=== PATIENT | male | born 1975 | race Caucasian/White ===

== ENCOUNTER 2022-10-11 00:13 | Inpatient (IN) ==
[2022-10-11] MEDS ORDERED: SODIUM CHLORIDE 0.9% 1000ML 1,000 ML IV ONE (00:24)
[2022-10-11] MEDS ORDERED: METOPROLOL TARTRATE 1 MG/ML VIAL IV STA ×2 (00:24→00:55)
--- NOTE | 2022-10-11 00:32 | Emergency Department Note ---
History of Present Illness General Chief complaint: Arrhythmia/Palpitations Stated complaint: AFIB/SHORT OF BREATH Time Seen by Provider: 10/11/22 00:17 History of Present Illness 47-year-old male presents from the correction reportedly had an onset of increased heart rate and some shortness of breath that started earlier this evening. Patient is on Tikosyn and 12.5 of metoprolol he did take an extra dose of 12.5 of metoprolol prior to arrival. Patient denies nausea vomiting diarrhea denies current chest pain. Patient states that he has longstanding history of atrial fibrillation. There are no other mitigating or alleviating factors Home Medications Medication Instructions Recorded Confirmed Type celecoxib 100 mg capsule (Celebrex) 100 mg PO BID 06/11/22 10/11/22 History dofetilide 500 mcg capsule 500 mcg PO BID 06/11/22 10/11/22 History (Tikosyn) gabapentin 800 mg tablet 800 mg PO TID 06/11/22 10/11/22 History metoprolol tartrate 25 mg tablet 12.5 mg PO BID 06/11/22 10/11/22 History trazodone 100 mg tablet 100 mg PO HS 06/11/22 10/11/22 History calcium polycarbophil 625 mg 625 mg PO BID 10/11/22 10/11/22 History tablet (Fiber Laxative (calcium polycarbophil)) cholecalciferol (vitamin D3) 25 50 mcg PO DAILY 10/11/22 10/11/22 History mcg (1,000 unit) tablet (Vitamin D3) duloxetine 30 mg capsule,delayed 30 mg PO DAILY 10/11/22 10/11/22 History release guanfacine 4 mg tablet,extended 4 mg PO HS 10/11/22 10/11/22 History release 24 hr prazosin 2 mg capsule 2 mg PO HS 10/11/22 10/11/22 History Allergies Allergy/AdvReac Type Severity Reaction Status Date / Time NKDA Allergy nkda Uncoded 10/11/22 02:19 Past Med/Surg History Medical History A-fib Anxiety GERD (gastroesophageal reflux disease) H/O paroxysmal supraventricular tachycardia HTN (hypertension) Lumbar pain with radiation down right leg Lumbar radiculopathy Vitamin D deficiency Social History Smoking Status: Never smoker Hx Alcohol Use: Yes Hx Substance Use: Yes Preferred Language: Kinyarwanda Hearing Ability: Normal 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 Beliefs That Will Affect Care: None Current Living Situation: Other Current Living Situation Comment: [place] Feels Safe at Home: Yes Review of Systems A total of 10 systems reviewed and were otherwise negative Respiratory: + cough and + dyspnea Cardiovascular: no chest pain Physical Exam Vital Signs Vital Signs - 24 hr 10/11/22 00:31 10/11/22 00:37 10/11/22 00:37 Temperature 36.8 C Temperature Source Oral Pulse Rate 128 H 117 H Pulse Rate from SpO2 Sensor Pulse Rhythm Irregular Irregular Respiratory Rate 18 18 Respiratory Effort / Characteristics Non-Labored Spontaneous Respiratory Depth Normal Respiratory Pattern Regular Blood Pressure 141/97 H Blood Pressure Mean 111 Pulse Oximetry 95 94 95 Oxygen Delivery Method Room Air Room Air Room Air Oxygen Flow Rate 0 Sepsis Recent Fever Within 48 Hours No Sepsis New/Unexplained Change in Mental Status No Sepsis Action Taken by Nursing No Action Required 10/11/22 00:42 10/11/22 00:24 10/11/22 00:30 Temperature Temperature Source Pulse Rate 116 H 122 H 127 H Pulse Rate from SpO2 Sensor 121 H Pulse Rhythm Respiratory Rate 12 20 Respiratory Effort / Characteristics Respiratory Depth Respiratory Pattern Blood Pressure 141/97 H 141/97 H Blood Pressure Mean 111 Pulse Oximetry 96 Oxygen Delivery Method Oxygen Flow Rate Sepsis Recent Fever Within 48 Hours Sepsis New/Unexplained Change in Mental Status Sepsis Action Taken by Nursing 10/11/22 00:40 10/11/22 00:45 10/11/22 00:59 Temperature Temperature Source Pulse Rate 122 H 121 H 112 H Pulse Rate from SpO2 Sensor 128 H 117 H Pulse Rhythm Respiratory Rate 20 16 Respiratory Effort / Characteristics Respiratory Depth Respiratory Pattern Blood Pressure 124/85 Blood Pressure Mean Pulse Oximetry 95 97 Oxygen Delivery Method Oxygen Flow Rate Sepsis Recent Fever Within 48 Hours Sepsis New/Unexplained Change in Mental Status Sepsis Action Taken by Nursing 10/11/22 00:50 10/11/22 00:55 10/11/22 01:00 Temperature Temperature Source Pulse Rate 112 H 110 H 120 H Pulse Rate from SpO2 Sensor 105 H 99 H 99 H Pulse Rhythm Respiratory Rate 14 16 19 Respiratory Effort / Characteristics Respiratory Depth Respiratory Pattern Blood Pressure 124/85 127/85 Blood Pressure Mean 98 99 Pulse Oximetry 95 95 95 Oxygen Delivery Method Oxygen Flow Rate Sepsis Recent Fever Within 48 Hours Sepsis New/Unexplained Change in Mental Status Sepsis Action Taken by Nursing 10/11/22 01:05 10/11/22 01:10 10/11/22 01:15 Temperature Temperature Source Pulse Rate 100 H 119 H 112 H Pulse Rate from SpO2 Sensor 100 H 109 H Pulse Rhythm Respiratory Rate 14 14 12 Respiratory Effort / Characteristics Respiratory Depth Respiratory Pattern Blood Pressure 118/82 127/82 105/82 Blood Pressure Mean 94 97 89 Pulse Oximetry 96 94 95 Oxygen Delivery Method Oxygen Flow Rate Sepsis Recent Fever Within 48 Hours Sepsis New/Unexplained Change in Mental Status Sepsis Action Taken by Nursing 10/11/22 01:20 10/11/22 01:30 10/11/22 01:40 Temperature Temperature Source Pulse Rate 124 H 102 H 105 H Pulse Rate from SpO2 Sensor 113 H 99 H 101 H Pulse Rhythm Respiratory Rate 14 12 13 Respiratory Effort / Characteristics Respiratory Depth Respiratory Pattern Blood Pressure 125/73 113/83 106/79 Blood Pressure Mean 90 93 88 Pulse Oximetry 95 94 94 Oxygen Delivery Method Oxygen Flow Rate Sepsis Recent Fever Within 48 Hours Sepsis New/Unexplained Change in Mental Status Sepsis Action Taken by Nursing 10/11/22 01:50 10/11/22 02:00 10/11/22 02:10 Temperature Temperature Source Pulse Rate 108 H 115 H 106 H Pulse Rate from SpO2 Sensor 100 H 105 H Pulse Rhythm Respiratory Rate 11 L 12 14 Respiratory Effort / Characteristics Respiratory Depth Respiratory Pattern Blood Pressure 120/80 102/81 140/97 Blood Pressure Mean 93 88 111 Pulse Oximetry 94 95 96 Oxygen Delivery Method Oxygen Flow Rate Sepsis Recent Fever Within 48 Hours Sepsis New/Unexplained Change in Mental Status Sepsis Action Taken by Nursing 10/11/22 02:20 10/11/22 02:30 10/11/22 02:40 Temperature Temperature Source Pulse Rate 102 H 99 H 99 H Pulse Rate from SpO2 Sensor 99 H 98 H 93 H Pulse Rhythm Respiratory Rate 11 L 11 L 11 L Respiratory Effort / Characteristics Respiratory Depth Respiratory Pattern Blood Pressure 117/83 108/86 108/84 Blood Pressure Mean 94 93 92 Pulse Oximetry 95 95 95 Oxygen Delivery Method Oxygen Flow Rate Sepsis Recent Fever Within 48 Hours Sepsis New/Unexplained Change in Mental Status Sepsis Action Taken by Nursing GENERAL: Patient is awake alert in no acute distress patient is resting comfortably and showing no signs of anxiety EYES: The conjunctivae are clear. The pupils are round and reactive. EARS, NOSE, MOUTH AND THROAT: The nose is without any evidence of any deformity. Mucous membranes are moist. Tongue is midline. NECK: The neck is nontender and supple. RESPIRATORY: Normal respiratory effort is noted there is no evidence of wheezing rhonchi or rales CARDIOVASCULAR: Irregularly irregular rhythm noted there no murmurs rubs or gallops normal S1 normal S2. GASTROINTESTINAL: The abdomen is soft. Abdomen is nontender. BACK: Full range of motion MUSCULOSKELETAL/EXTREMITIES: There is no evidence of gross deformity full range of motion is noted in the hips and shoulders. SKIN: There is no obvious evidence of any rash. There are no petechiae, pallor or cyanosis noted. NEUROLOGIC: Patient is awake alert and oriented x3 strength is symmetric Course Reevaluation(s) Reevaluation #1: Patient was given IV fluids, patient was started on Lopressor x2, patient has a heart rate that is 108. Patient reportedly has had multiple ablations and cardioversions and is also not on any anticoagulation. Time: : Consultations Consultation #1: Case was discussed with the [facility]ist for admission Time: : Administered Medications Discontinued Medications Sodium Chloride (Nss 1000ml) 1,000 mls @ 999 mls/hr IV .Q1H1M ONE Stop: 10/11/22 01:24 Last Infusion: 10/11/22 01:48 Dose: 0 mls/hr Documented By: Admin: 10/11/22 00:43 Dose: 999 mls/hr Documented By: LYNDON Metoprolol Tartrate (Metoprolol Tartrate 1 Mg/Ml Vial) 5 mg IV NOW STA Stop: 10/11/22 00:25 Last Admin: 10/11/22 00:42 Dose: 5 mg Documented By: LYNDON Metoprolol Tartrate (Metoprolol Tartrate 1 Mg/Ml Vial) 5 mg IV NOW STA Stop: 10/11/22 00:56 Last Admin: 10/11/22 00:59 Dose: 5 mg Documented By: LYNDON Critical Care Time Critical Care Time: Yes Total Critical Care Time: 35 I have personally spent greater than 35 minutes of critical care time in the direct management of this patient. This includes bedside care, interpretation of diagnostic studies, and testing, discussion with consultants, patient, and family members, and other required patient management activities. These minutes are in excess of all separately billable procedures. Medical Decision Making Medical Records Attestation: I reviewed the patient's medical records. Home Medications Current Medication List: was personally reviewed by me Laboratory Data Attestation: I reviewed the patient's lab results. Labs interpreted by me are unremarkable 10/11/22 00:39 10/11/22 00:39 Lab Results 10/11/22 10/11/22 10/11/22 Range/Units 00:39 00:39 00:39 WBC 5.55 (4.8-10.8) K/ul RBC 4.44 L (4.70-6.10) M/uL Hgb 14.4 (14.0-18.0) g/dl Hct 40.5 L (42.0-52.0) % MCV 91.2 (80.0-100.0) fL MCH 32.4 (25.0-34.0) pg MCHC 35.6 (32.0-36.0) g/dL RDW Std Deviation 40.6 (36.4-46.3) fL RDW Coeff of Angel Luis 12.3 (11.5-14.5) % Plt Count 139 (130-400) K/uL MPV 9.9 (9.4-12.4) fL Immature Gran % (Auto) 0.4 % Neut % (Auto) 65.9 % Lymph % (Auto) 22.9 % Barron % (Auto) 9.7 % Eos % (Auto) 0.7 % Baso % (Auto) 0.4 % Neut # (Auto) 3.66 (1.40-6.50) K/uL Lymph # (Auto) 1.27 (1.2-3.4) K/uL Barron # (Auto) 0.54 (0.11-0.59) K/uL Eos # (Auto) 0.04 (0-0.50) K/uL Baso # (Auto) 0.02 (0-0.2) K/uL Immature Gran # (Auto) 0.02 (0.01-0.20) K/uL PT 11.4 (9.0-12.0) Seconds INR 1.0 (0.9-1.1) Sodium 140 (136-145) mmol/L Potassium 3.6 (3.5-5.1) mmol/L Chloride 104 (98-107) mmol/L Carbon Dioxide 29 (21-32) mmol/L Anion Gap 7 (3-11) BUN 25 H (6-23) mg/dl Creatinine 0.89 (0.6-1.4) mg/dl Est Cr Clr Drug Dosing 139.8 ml/min Est GFR ( Amer) 117.2 ml/min Est GFR (Non-Af Amer) 101.1 ml/min BUN/Creatinine Ratio 28.1 H (10-20) Glucose 105 H (70-99(Fasting)) mg/dl Calcium 8.9 (8.6-10.3) mg/dl Magnesium 2.0 (1.7-2.4) mg/dl Total Bilirubin 0.7 (0.2-1.0) mg/dl AST 19 (13-39) U/L ALT 13 (7-52) U/L Alkaline Phosphatase 52 (34-104) U/L Troponin I High Sens 7.5 (0-20) pg/ml Total Protein 6.3 (6.0-8.3) gm/dl Albumin 4.1 (3.4-5.0) gm/dl Globulin 2.2 L (2.5-4.0) gm/dl Albumin/Globulin Ratio 1.9 (0.9-2) SARS-CoV-2, RNA, NAAT (NEGATIVE) 10/11/22 Range/Units 00:48 WBC (4.8-10.8) K/ul RBC (4.70-6.10) M/uL Hgb (14.0-18.0) g/dl Hct (42.0-52.0) % MCV (80.0-100.0) fL MCH (25.0-34.0) pg MCHC (32.0-36.0) g/dL RDW Std Deviation (36.4-46.3) fL RDW Coeff of Angel Luis (11.5-14.5) % Plt Count (130-400) K/uL MPV (9.4-12.4) fL Immature Gran % (Auto) % Neut % (Auto) % Lymph % (Auto) % Barron % (Auto) % Eos % (Auto) % Baso % (Auto) % Neut # (Auto) (1.40-6.50) K/uL Lymph # (Auto) (1.2-3.4) K/uL Barron # (Auto) (0.11-0.59) K/uL Eos # (Auto) (0-0.50) K/uL Baso # (Auto) (0-0.2) K/uL Immature Gran # (Auto) (0.01-0.20) K/uL PT (9.0-12.0) Seconds INR (0.9-1.1) Sodium (136-145) mmol/L Potassium (3.5-5.1) mmol/L Chloride (98-107) mmol/L Carbon Dioxide (21-32) mmol/L Anion Gap (3-11) BUN (6-23) mg/dl Creatinine (0.6-1.4) mg/dl Est Cr Clr Drug Dosing ml/min Est GFR ( Amer) ml/min Est GFR (Non-Af Amer) ml/min BUN/Creatinine Ratio (10-20) Glucose (70-99(Fasting)) mg/dl Calcium (8.6-10.3) mg/dl Magnesium (1.7-2.4) mg/dl Total Bilirubin (0.2-1.0) mg/dl AST (13-39) U/L ALT (7-52) U/L Alkaline Phosphatase (34-104) U/L Troponin I High Sens (0-20) pg/ml Total Protein (6.0-8.3) gm/dl Albumin (3.4-5.0) gm/dl Globulin (2.5-4.0) gm/dl Albumin/Globulin Ratio (0.9-2) SARS-CoV-2, RNA, NAAT NEGATIVE (NEGATIVE) Imaging Data Attestation: I personally reviewed and interpreted this imaging study as follows: My Impression: Chest x-ray interpreted by me negative for infiltrate normal mediastinum no pneumothorax no effusions ECG Data Attestation: I personally reviewed and interpreted this ECG as follows: Additional Comments: EKG interpreted by me rapid atrial fibrillation rate of 122 poor R wave progression the precordium no obvious ST segment elevation or depression normal axis Telemetry was ordered by me, interpreted as rapid atrial fibrillation rate of 120 MDM Narrative Medical decision making differential diagnosis includes rapid atrial fibrillation, electrolyte abnormality, metabolic derangement, acute coronary syndrome Plan is to check labs, EKG, chest x-ray, give IV Lopressor External medical records were reviewed by me Patient remained in stable condition however continued to have rapid atrial fibrillation despite Lopressor iv Case was discussed with the [facility] hospitalist for admission Impression & Plan Atrial fibrillation with RVR Discharge Plan Visit Data Chief Complaint: Arrhythmia/Palpitations Stated Complaint: AFIB/SHORT OF BREATH ED Provider: Hi Moreno Discharge Problem: Atrial fibrillation with RVR Patient Disposition: Admitted As Inpatient Forms Stand Alone Forms: [facility] Prescriptions Prescriptions: No Action gabapentin 800 mg tablet 800 mg PO TID trazodone 100 mg tablet 100 mg PO HS metoprolol tartrate 25 mg tablet 12.5 mg PO BID celecoxib [Celebrex] 100 mg capsule 100 mg PO BID dofetilide [Tikosyn] 500 mcg capsule 500 mcg PO BID calcium polycarbophil [Fiber Laxative (ca polycarbo)] 625 mg Tablet 625 mg PO BID prazosin 2 mg Capsule 2 mg PO HS duloxetine 30 mg Capsule,Delayed Release(Dr/Ec) 30 mg PO DAILY cholecalciferol (vitamin D3) [Vitamin D3] 25 mcg (1,000 unit) Tablet 50 mcg PO DAILY guanfacine 4 mg Tablet Extended Release 24 Hr 4 mg PO HS Referrals Referrals: Daron Bonilla [Non-Staff] -
[2022-10-11 01:04] LABS: Basophils # (auto) 0.02 K/uL (0-0.2); Basophils % (auto) 0.4 %; Eosinophils # (auto) 0.04 K/uL (0-0.50); Eosinophils % (auto) 0.7 %; Hematocrit (blood only) 40.5 % (42.0-52.0); Hemoglobin 14.4 g/dl (14.0-18.0); Immature Granulocytes # (auto) 0.02 K/uL (0.01-0.20); Immature Granulocytes % (auto) 0.4 %; Lymphocytes # (auto) 1.27 K/uL (1.2-3.4); Lymphocytes % (auto) 22.9 %; Mean Corpuscular Hemoglobin 32.4 pg (25.0-34.0); Mean Corpuscular Hgb Conc 35.6 g/dL (32.0-36.0); Mean Corpuscular Volume 91.2 fL (80.0-100.0); Mean Platelet Volume 9.9 fL (9.4-12.4); Monocytes # (auto) 0.54 K/uL (0.11-0.59); Monocytes % (auto) 9.7 %; Neutrophils # (auto) 3.66 K/uL (1.40-6.50); Neutrophils % (auto) 65.9 %; Platelet Count 139 K/uL (130-400); RDW Coefficient of Variation 12.3 % (11.5-14.5); RDW Standard Deviation 40.6 fL (36.4-46.3); Red Blood Count 4.44 M/uL (4.70-6.10); White Blood Count 5.55 K/ul (4.8-10.8)
[2022-10-11 01:07] LABS: Albumin Globulin Ratio 1.9 (0.9-2); Albumin Level 4.1 gm/dl (3.4-5.0); BUN Creatinine Ratio 28.1 (10-20); Bilirubin,Total 0.7 mg/dl (0.2-1.0); Calcium 8.9 mg/dl (8.6-10.3); Creatinine Clr Calc Pharmacy 139.8 ml/min; Est GFR (African American) 117.2 ml/min; Est GFR (Non-African American) 101.1 ml/min; Globulin 2.2 gm/dl (2.5-4.0); Potassium 3.6 mmol/L (3.5-5.1); Total Protein 6.3 gm/dl (6.0-8.3)
[2022-10-11 01:14] LABS: Troponin I High Sensitivity 7.5 pg/ml (0-20)
[2022-10-11 01:16] LABS: Prothrombin Time 11.4 Seconds (9.0-12.0)
[2022-10-11] MEDS ORDERED: SODIUM CHLORIDE 0.9% 1000ML 1,000 ML IV SCH (03:43)
[2022-10-11] MEDS ORDERED: METOPROLOL TARTRATE 1 MG/ML VIAL IV PRN (03:43)
[2022-10-11] MEDS ORDERED: ACETAMINOPHEN 325 MG TAB PO PRN (03:43)
[2022-10-11] MEDS ORDERED: NITROGLYCERIN SL 0.4 MG/TAB TAB SL PRN (03:43)
[2022-10-11] MEDS ORDERED: POLYETHYLENE (MIRALAX) 17 GM PACK PO PRN (03:43)
--- NOTE | 2022-10-11 04:32 | History and Physical Report ---
DATE OF ADMISSION: 10/11/2022. CHIEF COMPLAINT: Rapid AFib. HISTORY OF PRESENT ILLNESS: A 47-year-old male with past medical history significant for AFib, diagnosed in 2008 as per patient and says he had 3 ablations and 12 cardioversions in the past, last time he had rapid AFib, was 4 years ago. He is on Tikosyn for the last 4 years ago as per patient, history of chronic lumbar radiculopathy, also seems history of anxiety and depression, presents with rapid AFib. The patient says he was having lots of PVCs in the morning and later in the evening he developed heart palpitations, feeling some short of breath and some dizziness and was brought him to the hospital. In ER was in rapid AFib in the ER . Received IV Lopressor, heart rate is in low 100s now, resting comfortably, hemodynamically stable. Denies any headache. No blurred visions, no earache, no runny nose, no sore throat, no cough, no recent fevers. Appetite is okay. Eating and drinking okay. No nausea. No abdominal pain. Normal bowel and bladder movements.Denies Chest pains. Denies any blood in stools or black stools. Denies any hematuria. ALLERGIES: No known drug allergies. PAST MEDICAL HISTORY: As mentioned above. PAST SURGICAL HISTORY: Current cardiac ablations and also appendectomy. MEDICATIONS: The patient is on fiber laxative 625 mg p.o. b.i.d., celecoxib 100 mg p.o. b.i.d., vitamin D 50 mcg p.o. daily, Tikosyn 500 mcg p.o. b.i.d., duloxetine 30 mg p.o. daily, gabapentin 100 mg p.o. t.i.d., guanfacine 4 mg p.o. at bedtime, metoprolol tartrate 12.5 mg p.o. b.i.d., prazosin 2 mg p.o. at bedtime, trazodone 100 mg p.o. at bedtime. FAMILY HISTORY: Denies any family history. SOCIAL HISTORY: Denies any smoking. Rarely drinks alcohol. Denies any drug use. Currently coming from snf. REVIEW OF SYSTEMS: As per HPI. Rest of the review of systems is negative. PHYSICAL EXAMINATION: GENERAL: The patient is of moderate build, not in acute distress. VITAL SIGNS: Temperature 36.8, pulse 105, respiratory rate 13, blood pressure 106/79, oxygen 94% on room air. HEENT: Pupils equal, round and reactive to light. Oral mucosa moist. NECK: No JVD. No neck masses. CARDIOVASCULAR: S1 and S2 heard. Tachycardia. Irregular rhythm. No murmurs. RESPIRATORY SYSTEM: Normal AP diameter. No accessory muscle use. No wheezing or crackles. ABDOMEN: Soft, bowel sounds present, nontender, no distention. CENTRAL NERVOUS SYSTEM: Alert and oriented. Speech is clear. No facial droop. Obeys simple commands. Moves extremities. EXTREMITIES: No edema, no erythema. LABORATORY DATA: WBC 5.5, hemoglobin 14.4, hematocrit 40.5, platelets 139. PT 11.4, INR 1. Sodium 140, potassium 3.6, chloride 104, bicarbonate 29, BUN 25, creatinine 0.89, serum glucose 105, calcium 8.9, magnesium 2, total bilirubin 0.7, AST 19, ALT 13, alkaline phosphatase 52. Troponin I high sensitivity 7.5. SARS-CoV-2 rapid test negative. IMAGING DATA: Chest x-ray, no acute findings. EKG, rapid AFib with a rate of 122, no acute ST changes seen. ASSESSMENT AND PLAN: This is a 47-year-old male, who presents with rapid atrial fibrillation. 1. Rapid atrial fibrillation. Improved with IV Lopressor. Continue home metoprolol tartrate and Tikosyn. Iv lopressor prn. The patient is not on any anticoagulation. We will follow and monitor in tele floor. Serial enzymes, echocardiogram. We will keep n.p.o.Consult Cardiology. Anticoagulation as per Cardiology. 2. Chronic back pain. Continue his home medications. 3.? anxiety and depression. Continue his home medications. 4. Deep venous thrombosis prophylaxis. Lovenox. DISPOSITION: Closely monitor in the tele floor. Level 1 full code. Expect to discharge back to snf when stable. Job ID: [id number] [facility]
[2022-10-11 06:29] LABS: Basophils # (auto) 0.02 K/uL (0-0.2); Basophils % (auto) 0.4 %; Eosinophils # (auto) 0.06 K/uL (0-0.50); Eosinophils % (auto) 1.1 %; Hemoglobin 13.5 g/dl (14.0-18.0); Immature Granulocytes # (auto) 0.01 K/uL (0.01-0.20); Immature Granulocytes % (auto) 0.2 %; Lymphocytes # (auto) 1.68 K/uL (1.2-3.4); Lymphocytes % (auto) 29.5 %; Mean Corpuscular Hemoglobin 31.9 pg (25.0-34.0); Mean Corpuscular Hgb Conc 34.6 g/dL (32.0-36.0); Mean Corpuscular Volume 92.2 fL (80.0-100.0); Mean Platelet Volume 9.9 fL (9.4-12.4); Monocytes # (auto) 0.62 K/uL (0.11-0.59); Monocytes % (auto) 10.9 %; Neutrophils % (auto) 57.9 %; Platelet Count 138 K/uL (130-400); RDW Coefficient of Variation 12.5 % (11.5-14.5); RDW Standard Deviation 41.1 fL (36.4-46.3); Red Blood Count 4.23 M/uL (4.70-6.10); White Blood Count 5.69 K/ul (4.8-10.8)
[2022-10-11 06:45] LABS: BUN Creatinine Ratio 26.7 (10-20); Calcium 8.4 mg/dl (8.6-10.3); Creatinine Clr Calc Pharmacy 164.1 ml/min; Est GFR (African American) 125.7 ml/min; Est GFR (Non-African American) 108.5 ml/min; Potassium 3.9 mmol/L (3.5-5.1)
[2022-10-11 06:50] LABS: Troponin I High Sensitivity 14.3 pg/ml (0-20)
--- NOTE | 2022-10-11 08:09 | XRay Report ---
SINGLE VIEW CHEST CLINICAL HISTORY: Atypical chest pain. FINDINGS: 2 AP, portable, upright chest radiographs are obtained. No prior studies are available for comparison at the time of dictation. The examination is degraded by portable technique and apical renetta dotic positioning. The cardiomediastinal silhouette is unremarkable. The lungs and pleural spaces are clear noting mild dependent atelectasis. No pneumothorax is seen. The bony thorax is grossly intact. IMPRESSION: No active disease in the chest. ACT 112: Negative or not required by law. Electronically signed by: Hugo Palma M.D. 10/11/2022 8:08 AM
[2022-10-11] MEDS: GABAPENTIN 800 MG TAB PO SCH ×2 (08:56→13:03)
[2022-10-11] MEDS ORDERED: DULoxetine HCL 30 MG CAP PO SCH (09:00)
[2022-10-11] MEDS ORDERED: CALCIUM POLYCARBOPHIL 625MG TAB PO SCH (09:00)
[2022-10-11] MEDS ORDERED: CHOLECALCIFEROL 1,000 UNITS 25 MCG TAB PO SCH (09:00)
[2022-10-11] MEDS ORDERED: METOPROLOL TARTRATE 25 MG TAB PO SCH (09:00)
[2022-10-11] MEDS ORDERED: APIXABAN 5 MG TABLET PO SCH ×2 (09:00→11:45)
[2022-10-11] MEDS ORDERED: DOFETILIDE 125 MCG CAPSULE PO SCH (09:00)
[2022-10-11] MEDS ORDERED: ENOXAPARIN INJ 40 MG/0.4 ML SYR SQ SCH (09:00)
--- NOTE | 2022-10-11 09:17 | Cardiology Consultation ---
Date of Consultation October 11, 2022 Assessment & Plan (1) Atrial fibrillation with RVR: Plan Patient is a 47-year-old male with longstanding history of paroxysmal atrial fibrillation, past multiple pulmonary vein isolation ablation and cardioversions. Presents now with abrupt onset of tachypalpitations 10:30 PM. [id number] 2 score of 01 currently not on anticoagulation but abrupt onset less than 24 hours. Echocardiogram with preserved LV systolic function and no significant valvular disease Recommendations: Would proceed with synchronized electrical cardioversion this morning. Patient n.p.o. We will initiate anticoagulation with Eliquis with planned treatment minimum 30 days Continue current antiarrhythmic therapies dofetilide and metoprolol History of Present Illness Reason for Consultation: Paroxysmal atrial fibrillation with recurrence Requesting Physician: Dr. Gaston Attending Physician: Harrison Singer MD History of Present Illness Patient is a 47-year-old male with longstanding history of paroxysmal atrial fibrillation with prior pulmonary vein isolation ablation x3 last study 2019 prior multiple cardioversions for recurrence of atrial fibrillation on chronic antiarrhythmic therapy with Tikosyn Patient physically active and usually without restriction. Yesterday noted slight increase in ventricular ectopy. Last evening approximately 10:30 PM had abrupt onset of tachypalpitations consistent with patient's past atrial fibrillation. He sought evaluation in referred for admission with recurrence of atrial fibrillation with rapid response. Patient treated with IV metoprolol x2 with slowing of heart rate. Remains in atrial fibrillation this morning with sense of palpitations no chest pains, shortness of breath. Minimal dizziness on standing yesterday. No fevers chills unexplained infections. No bleeding difficulties. Previously on Eliquis but discontinued with [id number] 2 score of 01 Allergies Allergy/AdvReac Type Severity Reaction Status Date / Time No Known Allergies Allergy Verified 10/11/22 03:46 Home Medications Medication Instructions Recorded Confirmed Type celecoxib 100 mg capsule (Celebrex) 100 mg PO BID 06/11/22 10/11/22 History dofetilide 500 mcg capsule 500 mcg PO BID 06/11/22 10/11/22 History (Tikosyn) gabapentin 800 mg tablet 800 mg PO TID 06/11/22 10/11/22 History metoprolol tartrate 25 mg tablet 12.5 mg PO BID 06/11/22 10/11/22 History trazodone 100 mg tablet 100 mg PO HS 06/11/22 10/11/22 History calcium polycarbophil 625 mg 625 mg PO BID 10/11/22 10/11/22 History tablet (Fiber Laxative (calcium polycarbophil)) cholecalciferol (vitamin D3) 25 50 mcg PO DAILY 10/11/22 10/11/22 History mcg (1,000 unit) tablet (Vitamin D3) duloxetine 30 mg capsule,delayed 30 mg PO DAILY 10/11/22 10/11/22 History release guanfacine 4 mg tablet,extended 4 mg PO HS 10/11/22 10/11/22 History release 24 hr prazosin 2 mg capsule 2 mg PO HS 10/11/22 10/11/22 History Patient History Medical History A-fib Anxiety GERD (gastroesophageal reflux disease) H/O paroxysmal supraventricular tachycardia HTN (hypertension) Lumbar pain with radiation down right leg Lumbar radiculopathy Vitamin D deficiency Social History Smoking Status: Never smoker Hx Alcohol Use: No Hx Substance Use: Yes Preferred Language: Turkmen Communication Ability: Effective Hearing Ability: Normal Is Analyst Required: No Beliefs That Will Affect Care: None Current Living Situation: Other Current Living Situation Comment: [facility] Other Information That Helps Us Care for You: No Feels Safe at Home: Yes Assistive Devices: Glasses Review of Systems Review of Systems: All systems reviewed & are unremarkable except as noted in HPI & below Physical Exam Constitutional: WD/WN, vitals as above Eyes: PERRL, conjunctivae normal, anicteric sclerae ENMT: external ear and nose normal, oropharynx normal Neck: trachea midline, no thyromegaly Respiratory: normal respiratory effort, lungs clear to auscultation Cardiovascular: Rate/Rhythm: + tachycardic and + irregularly irregular Heart Sounds: normal S1 and normal S2; no gallop and no murmur Palpation: normal PMI Vessels: normal carotid upstroke and radial pulses present; no JVD and no carotid bruit Extremities: no edema Gastrointestinal (Abdomen): normal bowel sounds, soft, nontender, no hepatosplenomegaly Musculoskeletal: no cyanosis or clubbing, extremities motor strength 5/5 Skin: no rashes, warm and dry Neurologic: PERRL, EOMI, accommodation nl, no face palsy, no dysarthria Psychiatric: A+Ox3, euthymic affect Results & Data Vital Signs (Past 12 Hours) Vital Signs Temp Pulse Pulse Resp BP BP Pulse Ox 10/11/22 07:59 36.5 C 95 H 16 137/86 98 10/11/22 03:40 102 H 10/11/22 03:35 10/11/22 03:35 36.6 C 106 H 18 119/76 97 10/11/22 03:44 10/11/22 00:25 116 H 10/11/22 02:40 99 H 11 L 108/84 95 10/11/22 02:30 99 H 11 L 108/86 95 10/11/22 02:20 102 H 11 L 117/83 95 10/11/22 02:10 106 H 14 140/97 96 10/11/22 02:00 115 H 12 102/81 95 10/11/22 01:50 108 H 11 L 120/80 94 10/11/22 01:40 105 H 13 106/79 94 10/11/22 01:30 102 H 12 113/83 94 10/11/22 01:20 124 H 14 125/73 95 10/11/22 01:15 112 H 12 105/82 95 10/11/22 01:10 119 H 14 127/82 94 10/11/22 01:05 100 H 14 118/82 96 10/11/22 01:00 120 H 19 127/85 95 10/11/22 00:55 110 H 16 124/85 95 10/11/22 00:50 112 H 14 95 10/11/22 00:59 112 H 124/85 10/11/22 00:45 121 H 16 97 10/11/22 00:40 122 H 20 95 10/11/22 00:30 127 H 20 96 10/11/22 00:24 122 H 12 141/97 H 10/11/22 00:42 116 H 141/97 H 10/11/22 00:37 95 10/11/22 00:37 117 H 18 94 10/11/22 00:31 36.8 C 128 H 18 141/97 H 95 O2 Del Method O2 Flow Rate 10/11/22 07:59 Room Air 10/11/22 03:40 10/11/22 03:35 Room Air 10/11/22 03:35 Room Air 10/11/22 03:44 Room Air 10/11/22 00:25 10/11/22 02:40 10/11/22 02:30 10/11/22 02:20 10/11/22 02:10 10/11/22 02:00 10/11/22 01:50 10/11/22 01:40 10/11/22 01:30 10/11/22 01:20 10/11/22 01:15 10/11/22 01:10 10/11/22 01:05 10/11/22 01:00 10/11/22 00:55 10/11/22 00:50 10/11/22 00:59 10/11/22 00:45 10/11/22 00:40 10/11/22 00:30 10/11/22 00:24 10/11/22 00:42 10/11/22 00:37 Room Air 0 10/11/22 00:37 Room Air 10/11/22 00:31 Room Air Laboratory Results Laboratory Results - last 24 hr 10/11/22 10/11/22 10/11/22 00:39 00:39 00:39 WBC 5.55 RBC 4.44 L Hgb 14.4 Hct 40.5 L MCV 91.2 MCH 32.4 MCHC 35.6 RDW Std Deviation 40.6 RDW Coeff of Angel Luis 12.3 Plt Count 139 MPV 9.9 Immature Gran % (Auto) 0.4 Neut % (Auto) 65.9 Lymph % (Auto) 22.9 [place] % (Auto) 9.7 Eos % (Auto) 0.7 Baso % (Auto) 0.4 Neut # (Auto) 3.66 Lymph # (Auto) 1.27 [place] # (Auto) 0.54 Eos # (Auto) 0.04 Baso # (Auto) 0.02 Immature Gran # (Auto) 0.02 PT 11.4 INR 1.0 Sodium 140 Potassium 3.6 Chloride 104 Carbon Dioxide 29 Anion Gap 7 BUN 25 H Creatinine 0.89 Est Cr Clr Drug Dosing 139.8 Est GFR ( Amer) 117.2 Est GFR (Non-Af Amer) 101.1 BUN/Creatinine Ratio 28.1 H Glucose 105 H Calcium 8.9 Magnesium 2.0 Total Bilirubin 0.7 AST 19 ALT 13 Alkaline Phosphatase 52 Troponin I High Sens 7.5 Total Protein 6.3 Albumin 4.1 Globulin 2.2 L Albumin/Globulin Ratio 1.9 Nasal Screen MRSA (PCR) SARS-CoV-2, RNA, NAAT 10/11/22 10/11/22 10/11/22 00:48 05:42 05:42 WBC 5.69 RBC 4.23 L Hgb 13.5 L Hct 39.0 L MCV 92.2 MCH 31.9 MCHC 34.6 RDW Std Deviation 41.1 RDW Coeff of Angel Luis 12.5 Plt Count 138 MPV 9.9 Immature Gran % (Auto) 0.2 Neut % (Auto) 57.9 Lymph % (Auto) 29.5 [place] % (Auto) 10.9 Eos % (Auto) 1.1 Baso % (Auto) 0.4 Neut # (Auto) 3.30 Lymph # (Auto) 1.68 [place] # (Auto) 0.62 H Eos # (Auto) 0.06 Baso # (Auto) 0.02 Immature Gran # (Auto) 0.01 PT INR Sodium 141 Potassium 3.9 Chloride 109 H Carbon Dioxide 28 Anion Gap 4 BUN 20 Creatinine 0.75 Est Cr Clr Drug Dosing 164.1 Est GFR ( Amer) 125.7 Est GFR (Non-Af Amer) 108.5 BUN/Creatinine Ratio 26.7 H Glucose 102 H Calcium 8.4 L Magnesium 2.0 Total Bilirubin AST ALT Alkaline Phosphatase Troponin I High Sens 14.3 D Total Protein Albumin Globulin Albumin/Globulin Ratio Nasal Screen MRSA (PCR) SARS-CoV-2, RNA, NAAT NEGATIVE 10/11/22 Unknown WBC RBC Hgb Hct MCV MCH MCHC RDW Std Deviation RDW Coeff of Angel Luis Plt Count MPV Immature Gran % (Auto) Neut % (Auto) Lymph % (Auto) [place] % (Auto) Eos % (Auto) Baso % (Auto) Neut # (Auto) Lymph # (Auto) [place] # (Auto) Eos # (Auto) Baso # (Auto) Immature Gran # (Auto) PT INR Sodium Potassium Chloride Carbon Dioxide Anion Gap BUN Creatinine Est Cr Clr Drug Dosing Est GFR ( Amer) Est GFR (Non-Af Amer) BUN/Creatinine Ratio Glucose Calcium Magnesium Total Bilirubin AST ALT Alkaline Phosphatase Troponin I High Sens Total Protein Albumin Globulin Albumin/Globulin Ratio Nasal Screen MRSA (PCR) Negative SARS-CoV-2, RNA, NAAT
--- NOTE | 2022-10-11 09:37 | Anesthesiology Consultation ---
Date of Service October 11, 2022 Assessment & Plan Chart Review Chart Review: Acceptable Risk for Surgery Consults Requested none History Height/Weight Height: 6 ft 2 in Weight: 117.571 kg Allergies Allergy/AdvReac Type Severity Reaction Status Date / Time No Known Allergies Allergy Verified 10/11/22 03:46 Medications Home Medications Medication Instructions Recorded Confirmed Last Taken celecoxib 100 mg capsule (Celebrex) 100 mg PO BID 06/11/22 10/11/22 Unknown dofetilide 500 mcg capsule 500 mcg PO BID 06/11/22 10/11/22 Unknown (Tikosyn) gabapentin 800 mg tablet 800 mg PO TID 06/11/22 10/11/22 Unknown metoprolol tartrate 25 mg tablet 12.5 mg PO BID 06/11/22 10/11/22 Unknown trazodone 100 mg tablet 100 mg PO HS 06/11/22 10/11/22 Unknown calcium polycarbophil 625 mg 625 mg PO BID 10/11/22 10/11/22 Unknown tablet (Fiber Laxative (calcium polycarbophil)) cholecalciferol (vitamin D3) 25 50 mcg PO DAILY 10/11/22 10/11/22 Unknown mcg (1,000 unit) tablet (Vitamin D3) duloxetine 30 mg capsule,delayed 30 mg PO DAILY 10/11/22 10/11/22 Unknown release guanfacine 4 mg tablet,extended 4 mg PO HS 10/11/22 10/11/22 Unknown release 24 hr prazosin 2 mg capsule 2 mg PO HS 10/11/22 10/11/22 Unknown Active Medications Generic Name Dose Route Start Last Admin Trade Name Nitish PRN Reason Stop Dose Admin Apixaban 5 mg 10/11/22 09:00 10/11/22 09:19 Apixaban 5 Mg Tablet PO 11/10/22 08:59 5 mg BID DEREJE Administration Calcium Polycarbophil 625 mg 10/11/22 09:00 10/11/22 08:56 Calcium Polycarbophil 625mg Tab PO 11/10/22 08:59 625 mg BID DEREJE Administration Dofetilide 500 mcg 10/11/22 09:00 10/11/22 08:54 Dofetilide 125 Mcg Capsule PO 11/10/22 08:59 500 mcg BID DEREJE Administration Duloxetine HCl 30 mg 10/11/22 09:00 10/11/22 08:57 Duloxetine Hcl 30 Mg Cap PO 11/10/22 08:59 30 mg DAILY DEREJE Administration Gabapentin 800 mg 10/11/22 09:00 10/11/22 08:56 Gabapentin 800 Mg Tab PO 11/10/22 08:59 800 mg TID DEREJE Administration Sodium Chloride 1,000 mls @ 80 mls/hr 10/11/22 03:43 10/11/22 03:50 Nss 1000ml IV 10/11/22 16:12 80 mls/hr .[id number] DEREJE Administration Metoprolol Tartrate 12.5 mg 10/11/22 09:00 10/11/22 08:54 Metoprolol Tartrate 25 Mg Tab PO 11/10/22 08:59 12.5 mg BID DEREJE Administration Vitamin D 2,000 units 10/11/22 09:00 10/11/22 08:56 Cholecalciferol 1,000 Units 25 Mcg Tab PO 11/10/22 08:59 2,000 units DAILY DEREJE Administration Past Medical History Medical History A-fib Anxiety GERD (gastroesophageal reflux disease) H/O paroxysmal supraventricular tachycardia HTN (hypertension) Lumbar pain with radiation down right leg Lumbar radiculopathy Vitamin D deficiency Social History Smoking Status: Never smoker Hx Alcohol Use: No Hx Substance Use: Yes Physical Exam Vital Signs Last Vital Signs Temp 36.5 C 10/11/22 07:59 Pulse 95 H 10/11/22 07:59 Resp 16 10/11/22 07:59 BP 137/86 10/11/22 07:59 Pulse Ox 98 10/11/22 07:59 O2 Del Method Room Air 10/11/22 07:59 O2 Flow Rate 0 10/11/22 00:37 Testing Laboratory Results 10/11/22 05:42 10/11/22 05:42 PT 11.4 Seconds (9.0-12.0) 10/11/22 00:39 INR 1.0 (0.9-1.1) 10/11/22 00:39
--- NOTE | 2022-10-11 09:48 | Cardioversion ---
Date of Service October 11, 2022 Electrical Cardioversion Rpt Electrical Cardioversion Report Patient seen and examined, procedure and risks of procedure explained in detail, informed consent obtained. Formal TIMEOUT performed. Patient sedated via anesthesia consult with continuos HR,BP,O2 endtidal CO2 monitoring. Single 200J biphasic synchronized electrical cardioversion performed with successful conversion to sinus bradycardia. Patient aroused, tolerated well EKG Sinus rhythm at 61 bpm QTc 450
[2022-10-11] MEDS ORDERED: POTASSIUM CHLORIDE CRTAB 20 MEQ TABCR PO ONE (09:50)
[2022-10-11] MEDS ORDERED: PROPOFOL IV EMULSION 10 MG/ML 20 ML VIAL IV ONE (09:52)
[2022-10-11] MEDS ORDERED: LIDOCAINE 2% 2 ML VIAL/AMP(20MG/ML) INFIL ONE (09:52)
--- NOTE | 2022-10-11 09:59 | Communication Note ---
Date of Service: October 11, 2022 Patient presented with recurrence of paroxysmal atrial fibrillation. Underwent synchronized electrical cardioversion with successful conversion to sinus rhythm Recommendations: Continue dofetilide and metoprolol previous dosings. [id number] VASc 2 score of 0-1. Patient should be on Eliquis for 30 days post cardioversion Add potassium chloride 10 milleqs per day ongoing given borderline potassium level, recurrence of atrial fibrillation
--- NOTE | 2022-10-11 12:50 | Anesthesiology Progress Note ---
Date of Service October 11, 2022 Anesthesia Post Procedure Vital Signs Vital Signs: Temp Pulse Pulse Resp BP BP Pulse Ox 10/11/22 12:13 36.6 C 60 16 128/78 96 10/11/22 10:00 55 L 16 113/80 96 10/11/22 09:45 62 16 125/79 96 10/11/22 07:59 36.5 C 95 H 16 137/86 98 10/11/22 03:40 102 H 10/11/22 03:35 10/11/22 03:35 36.6 C 106 H 18 119/76 97 10/11/22 03:44 10/11/22 00:25 116 H 10/11/22 02:40 99 H 11 L 108/84 95 10/11/22 02:30 99 H 11 L 108/86 95 10/11/22 02:20 102 H 11 L 117/83 95 10/11/22 02:10 106 H 14 140/97 96 10/11/22 02:00 115 H 12 102/81 95 10/11/22 01:50 108 H 11 L 120/80 94 10/11/22 01:40 105 H 13 106/79 94 10/11/22 01:30 102 H 12 113/83 94 10/11/22 01:20 124 H 14 125/73 95 10/11/22 01:15 112 H 12 105/82 95 10/11/22 01:10 119 H 14 127/82 94 10/11/22 01:05 100 H 14 118/82 96 10/11/22 01:00 120 H 19 127/85 95 10/11/22 00:55 110 H 16 124/85 95 10/11/22 00:50 112 H 14 95 10/11/22 00:59 112 H 124/85 10/11/22 00:45 121 H 16 97 10/11/22 00:40 122 H 20 95 10/11/22 00:30 127 H 20 96 10/11/22 00:24 122 H 12 141/97 H 10/11/22 00:42 116 H 141/97 H 10/11/22 00:37 95 10/11/22 00:37 117 H 18 94 10/11/22 00:31 36.8 C 128 H 18 141/97 H 95 O2 Del Method O2 Flow Rate 10/11/22 12:13 Room Air 10/11/22 10:00 Room Air 10/11/22 09:45 Room Air 10/11/22 07:59 Room Air 10/11/22 03:40 10/11/22 03:35 Room Air 10/11/22 03:35 Room Air 10/11/22 03:44 Room Air 10/11/22 00:25 10/11/22 02:40 10/11/22 02:30 10/11/22 02:20 10/11/22 02:10 10/11/22 02:00 10/11/22 01:50 10/11/22 01:40 10/11/22 01:30 10/11/22 01:20 10/11/22 01:15 10/11/22 01:10 10/11/22 01:05 10/11/22 01:00 10/11/22 00:55 10/11/22 00:50 10/11/22 00:59 10/11/22 00:45 10/11/22 00:40 10/11/22 00:30 10/11/22 00:24 10/11/22 00:42 10/11/22 00:37 Room Air 0 10/11/22 00:37 Room Air 10/11/22 00:31 Room Air Transfer of Care Handoff Completed per policy Notes Mental Status: alert / awake / arousable and participated in evaluation Patient Amnestic to Procedure: Yes Nausea / Vomiting: adequately controlled Pain: adequately controlled Airway Patency, RR, SpO2: stable & adequate BP & HR: stable & adequate Hydration State: stable & adequate Anesthetic Complications: no major complications apparent
--- NOTE | 2022-10-11 13:01 | Discharge Summary ---
Date of Service October 11, 2022 Admission HPI Per Admitting Provider A 47-year-old male with past medical history significant for AFib, diagnosed in 2008 as per patient and says he had 3 ablations and 12 cardioversions in the past, last time he had rapid AFib, was 4 years ago. He is on Tikosyn for the last 4 years ago as per patient, history of chronic lumbar radiculopathy, also seems history of anxiety and depression, presents with rapid AFib. The patient says he was having lots of PVCs in the morning and later in the evening he developed heart palpitations, feeling some short of breath and some dizziness and was brought him to the hospital. In ER was in rapid AFib in the ER . Received IV Lopressor, heart rate is in low 100s now, resting comfortably, hemodynamically stable. Denies any headache. No blurred visions, no earache, no runny nose, no sore throat, no cough, no recent fevers. Appetite is okay. Eating and drinking okay. No nausea. No abdominal pain. Normal bowel and bladder movements.Denies Chest pains. Denies any blood in stools or black stools. Denies any hematuria. Admission Exam Per Admitting Provider GENERAL: The patient is of moderate build, not in acute distress. VITAL SIGNS: Temperature 36.8, pulse 105, respiratory rate 13, blood pressure 106/79, oxygen 94% on room air. HEENT: Pupils equal, round and reactive to light. Oral mucosa moist. NECK: No JVD. No neck masses. CARDIOVASCULAR: S1 and S2 heard. Tachycardia. Irregular rhythm. No murmurs. RESPIRATORY SYSTEM: Normal AP diameter. No accessory muscle use. No wheezing or crackles. ABDOMEN: Soft, bowel sounds present, nontender, no distention. CENTRAL NERVOUS SYSTEM: Alert and oriented. Speech is clear. No facial droop. Obeys simple commands. Moves extremities. EXTREMITIES: No edema, no erythema. Principal Diagnosis A-fib with RVR status post cardioversion Discharge Exam Constitutional: WD/WN, vitals as above, NAD, sitting up in bed, pleasant, conversing easily Respiratory: normal respiratory effort, lungs clear to auscultation, no wheeze, rales, rhonchi. Normal insp/exp effort, no accessory muscle use Cardiovascular: RRR, no murmur, no edema Vessels: no JVD or carotid bruit Chest: normal inspection of chest Abdomen: normal bowel sounds, soft, nontender, no hepatosplenomegaly Musculoskeletal: no cyanosis or clubbing, extremities motor strength 5/5 Skin: no rashes, warm and dry normal turgor Neurologic: PERRL, EOMI, accommodation nl, no face palsy, no dysarthria CN's II- XI intact bilaterally and moves all extremities Discharge Data Allergies Allergy/AdvReac Type Severity Reaction Status Date / Time No Known Allergies Allergy Verified 10/11/22 03:46 Consultations 10/11/22 01:31 ED Decision to Admit Stat 10/11/22 08:00 Consult Cardiology Routine Procedures Performed Operation Date: 10/11/22 09:45 Actual Procedures p Cardioversion - Rasheed Sosa MD Hospital Course (1) Atrial fibrillation with RVR: Plan Patient is a 47-year-old male with past history of paroxysmal atrial fibrillation with prior pulmonary vein isolation ablation x3 last study 2019 prior multiple cardioversions for recurrence of atrial fibrillation on chronic antiarrhythmic therapy with Tikosyn presented to the ED with A-fib with RVR. Echocardiogram was done which showed EF of 60 to 65% with mildly dilated left atrium and atrial fibrillation Patient underwent electrical cardioversion successfully by cardiology. Patient was recommended to be placed on 30 more days of Eliquis. Discussed with the present; currently Eliquis is not in stock at [facility]. 6 doses of Eliquis provided at discharge after discussion with inpatient pharmacy Total Time Total Time Spent Total Time Spent (In Minutes): 45 Total Time Includes: Examination of the Patient, Discharge Planning, Medication Reconciliation, Communication With Other Providers and Other Discharge Plan Discharge Items Patient Disposition: Home - Self-Care Reason For Visit: A FIB Discharge Diagnosis: A.fib with RVR s/p cardioversion Activity: Resume your previous activity Non-emergency contact: Primary Care Provider Call non-emergency contact if: you have any medication questions Follow-up/Referrals: Sahara CARMONA [Primary Care Provider] - Diet: Regular Addtl Attending Provider Instructions: You were admitted to the hospital with irregular heart rhythm with rapid ventricular response. You underwent cardioversion. You would need to be on Eliquis twice daily for 1 month(30 days) Please continue to take all medication as prescribed before. Pending Studies at Discharge: No Stand-Alone Forms: [employer], Smoking Cessation Medications and DC Order Prescriptions: New potassium chloride 10 mEq Tablet,Er Particles/Crystals 10 meq PO DAILY Qty: 30 0RF Eliquis 5 mg Tablet 5 mg PO BID Qty: 60 0RF Continued gabapentin 800 mg tablet 800 mg PO TID trazodone 100 mg tablet 100 mg PO HS metoprolol tartrate 25 mg tablet 12.5 mg PO BID celecoxib [Celebrex] 100 mg capsule 100 mg PO BID dofetilide [Tikosyn] 500 mcg capsule 500 mcg PO BID calcium polycarbophil [Fiber Laxative (ca polycarbo)] 625 mg Tablet 625 mg PO BID prazosin 2 mg Capsule 2 mg PO HS duloxetine 30 mg Capsule,Delayed Release(Dr/Ec) 30 mg PO DAILY cholecalciferol (vitamin D3) [Vitamin D3] 25 mcg (1,000 unit) Tablet 50 mcg PO DAILY guanfacine 4 mg Tablet Extended Release 24 Hr 4 mg PO HS Discharge Orders: Discharge Order (Routine); Ordered 10/11/22 Ordered By: Harrison Singer Admission Data Admit Date/Time: 10/11/22 02:31 Attending Provider: Harrison Singer Admit Provider: Jeff Mariano Primary Care Provider: Sahara CARMONA Other Providers: Jeff Mariano ; Shannan Holt ; Randall Lopez ; Rasheed Sosa ; Raul Pereira ; Scot Horta ; Christian Dave ; Marcela Ivey ; Janeth Segura ; Shannan Glover ; Aston Julio ; Demarco Girard
[2022-10-11] MEDS ORDERED: PRAZOSIN HCL 1 MG CAP PO SCH (21:00)
[2022-10-11] MEDS ORDERED: traZODone HCL 100 MG TAB PO SCH (21:00)
[2022-10-12] MEDS ORDERED: POTASSIUM CHLORIDE 10 MEQ TABCR PO SCH (09:00)
--- NOTE | 2022-10-13 05:46 | Electrocardiogram Report ---
Test Reason : Blood Pressure : / mmHG Vent. Rate : 122 BPM Atrial Rate : 000 BPM P-R Int : 000 ms QRS Dur : 096 ms QT Int : 336 ms P-R-T Axes : 000 003 -11 degrees QTc Int : 478 ms Atrial fibrillation with rapid ventricular response Low voltage QRS Abnormal ECG No previous ECGs available Confirmed by Zane Cannon ([id number]) on 10/13/2022 5:45:42 AM Referred By: [facility] Confirmed By:Zane Cannon
--- NOTE | 2022-10-13 05:55 | Electrocardiogram Report ---
Test Reason : Blood Pressure : / mmHG Vent. Rate : 105 BPM Atrial Rate : 127 BPM P-R Int : 000 ms QRS Dur : 100 ms QT Int : 374 ms P-R-T Axes : 000 009 005 degrees QTc Int : 494 ms Atrial fibrillation with rapid ventricular response Abnormal ECG When compared with ECG of 11-OCT-2022 00:21, No significant change was found Confirmed by Zane Cannon ([id number]) on 10/13/2022 5:55:17 AM Referred By: [facility] Confirmed By:Zane Cannon
--- NOTE | 2022-10-13 06:12 | Electrocardiogram Report ---
Test Reason : Blood Pressure : / mmHG Vent. Rate : 061 BPM Atrial Rate : 061 BPM P-R Int : 188 ms QRS Dur : 102 ms QT Int : 448 ms P-R-T Axes : 066 002 028 degrees QTc Int : 450 ms Normal sinus rhythm Normal ECG When compared with ECG of 11-OCT-2022 05:54, Sinus rhythm has replaced Atrial fibrillation Vent. rate has decreased BY 44 BPM Confirmed by Zane Cannon ([id number]) on 10/13/2022 6:12:32 AM Referred By: [facility] Confirmed By:Zane Cannon
== END 2022-10-11 15:06 | DRG 310 ==
LOC: ED 00:13 → 2E 02:31

== ENCOUNTER 2023-12-22 08:19 | Inpatient (IN) ==
--- NOTE | 2023-12-22 08:33 | Emergency Department Note ---
Impression & Plan Fall, Left leg weakness, Hand pain, Contusion of scalp ED Provider Note NAME: REGGIE [id number] CAROLE AGE: 48 SEX: M : 1975 ARRIVES VIA: Ambulance INFORMANT: Patient, ED PROVIDER(S): Kavin Miller MD CHIEF COMPLAINT: Fall, head injury, weakness MEDICAL DECISION MAKING: Patient presents due to concern for fall head and neck pain with associated weakness of the left hand and left lower extremity. Code stroke was initiated although there was concern for possible cervical spine injury. I did speak with Dr. Wallace who did evaluate the patient thought this may be more related to neck injury the patient did review the patient's CT imaging and not a TNK candidate. Blood work shows a normal white count hemoglobin and platelet count kidney function is unremarkable. Coags unremarkable. COVID-negative. The patient did have CT head cervical spine and lumbar spine as the patient had complained of chronic back pain and with his left lower extremity weakness to evaluate for possible occult trauma. Patient's CTs were negative for obvious fracture. CTA head and neck are negative. Patient was kept in a cervical collar at all times. The patient's MRI cervical spine was ordered. Cervical spine MRI showed nondisplaced fracture of the spinous process of C5. There is degenerative change and canal stenosis and severe bilateral foraminal stenosis. Patient was kept in a cervical collar. The patient was reevaluated and still complained of difficulty with moving his left hand as well as left lower extremity. I did speak with the on-call hospitalist Dr. Swift for evaluation. I also did discuss patient's case and physical exam findings with the on-call retail experience specialist Dr. Simpson he. did review his imaging. He will see the patient in consultation. I did let the inpatient service that Dr. Simpson would see the patient. Patient was admitted to the medicine service. Critical Care: I have personally spent 35 minutes of critical care time in direct management of this patient. This includes bedside care, interpretation of diagnostic studies, and testing, discussion with consultants, patient, and family members, and other require inpatient management activities. This 35 minutes is in excess of all separately billable procedures. Discussion w/ other healthcare providers: Dr. Wallace [facility] telestroke Dr. Swift [facility] inpatient medicine service Dr. Simpson retail experience specialist Prior /Outside records reviewed: I reviewed a cardiology visit from March 2023. Known history of A-fib. Also history of anxiety GERD SVT hypertension lumbar radiculopathy. Patient is on Eliquis. Differential diagnosis: Fracture, dislocation, contusion, strain, sprain, ICH, hemothorax, intra- abdominal injury, anemia among other causes were considered. Diagnostics, as interpreted by me: ECG: Sinus with PACs, rate of 66, normal intervals, normal axis no ST elevations. Cardiac monitoring: An order was placed for continuous cardiac monitoring. The monitor shows a rate of 85 with sinus rhythm. Patient was placed on pulse oximetry Medical decision rules: None Imaging studies: I informally interpreted the patient's CT head does not show obvious ICH with formal report to follow. HPI:Patient presents due to concern for fall that occurred just prior to arrival. The patient reportedly had gotten up for count and rock few. Patient reports that he does not remember what happened next. The patient states that when he came to patient could not move his left leg and did have significant pain in his bilateral hands. Patient denies any chest pains or shortness of breath. The patient does have acute on chronic back pain. The patient does not take any blood thinners does have a prior history of A-fib has been off Eliquis for approximately 1 year. Patient states that he stood up of his own volition prior to the fall and was able to move his leg but feels as though he cannot move his left lower extremity. No prior history of stroke or mini stroke. PAST MEDICAL HISTORY: See Below PAST SURGICAL HISTORY: See Below SOCIAL HISTORY: See Below HOME MEDICATIONS: See Below ALLERGIES: See Below VITALS: See Below PHYSICAL EXAMINATION: GENERAL: NAD, non-toxic. EYE EXAM: Normal conjunctiva. PERRL, no anisocoria and EOM's grossly intact w/o pain. Head: Forehead contusion. OROPHARYNX: Moist mucus membranes, grossly normal dentition. NECK: Trachea midline, no stridor. C-collar in place, pain to the midline and spine without obvious step-offs. LUNGS: Clear to auscultation. Normal chest wall mechanics. HEART: NSR, no MRG. ABDOMEN: Abdomen soft, non-tender, no masses, no rebound or guarding. BACK: No CVA TTP. No midline thoracic or lumbar TTP. SKIN: No rashes and no bruising. UPPER EXTREMITIES: Pain to palpation of bilateral fingers without obvious deformity. LOWER EXTREMITIES: Grossly normal, no edema. NEURO EXAM: A&O x3, cranial nerves II-XII grossly intact, normal speech, able to somewhat internally and externally rotate the left lower extremity but is unable to bend the knee or raise the hip off the bed, able to flex and extend at the left ankle. No weakness of the right lower extremity. 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 Past Med/Surg History Problem List (Updated 12/22/23 @ 16:12 by Kavin Miller MD) Contusion of scalp (Acute) Hand pain (Acute) Left leg weakness (Acute) Fall (Acute) Syncope Cervical spine fracture Acquired right foot drop Paresthesia of right lower extremity Atrial fibrillation Atrial fibrillation with RVR (Acute) Sacroiliitis Lumbar radiculopathy H/O paroxysmal supraventricular tachycardia Lumbar pain with radiation down right leg HTN (hypertension) GERD (gastroesophageal reflux disease) Anxiety Vitamin D deficiency A-fib (Acute) Social History Smoking Status: Unknown if ever smoked Hx Alcohol Use: No Hx Substance Use: Yes Preferred Language: Lao Communication Ability: Effective Hearing Ability: Normal Tray Filler Required: No Beliefs That Will Affect Care: None Current Living Situation: Other Current Living Situation Comment: [place] Feels Safe at Home: Yes Assistive Devices: Glasses Allergies Allergies Allergy/AdvReac Type Severity Reaction Status Date / Time No Known Allergies Allergy Verified 07/31/23 13:38 Home Meds Home Medications Medication Instructions Recorded Confirmed dofetilide 500 mcg capsule 500 mcg PO BID 06/11/22 12/22/23 (Tikosyn) gabapentin 800 mg tablet 800 mg PO TID 06/11/22 12/22/23 prazosin 2 mg capsule 4 mg PO HS 10/11/22 12/22/23 duloxetine 60 mg capsule,delayed 60 mg PO BID 03/12/23 12/22/23 release atomoxetine 60 mg capsule 60 mg PO DAILY 12/22/23 12/22/23 ergocalciferol (vitamin D2) 1,250 1,250 mcg PO DAILY 12/22/23 12/22/23 mcg (50,000 unit) capsule (Drisdol) trazodone 100 mg tablet 100 mg PO HS 12/22/23 12/22/23 Previous Rx's Medication Instructions Recorded potassium chloride 10 mEq 10 meq PO DAILY #30 tabs 10/11/22 tablet,extended release(part/cryst) metoprolol tartrate 37.5 mg tablet 37.5 mg PO DAILY #30 tabs 11/25/22 Results & Data (ED) Vital Signs Vital Signs - 24 hr 12/22/23 08:32 12/22/23 08:32 12/22/23 08:32 Temperature 36.4 C L 36.4 C L Temperature Source Oral Oral Pulse Rate 66 Pulse Rate [Apical] 66 Respiratory Rate 18 18 Blood Pressure 139/64 Blood Pressure [Right Arm] 139/64 Blood Pressure Mean 89 Blood Pressure Mean [Right Arm] 89 Pulse Oximetry 100 100 100 Oxygen Delivery Method Room Air Room Air Room Air Sepsis Recent Fever Within 48 Hours No Sepsis New/Unexplained Change in Mental Status N/A Sepsis Action Taken by Nursing No Action Required 12/22/23 08:32 12/22/23 08:32 12/22/23 08:41 Temperature 36.4 C L 36.4 C L Temperature Source Oral Pulse Rate 66 60 Pulse Rate [Apical] 66 Respiratory Rate 18 18 Blood Pressure 139/64 Blood Pressure [Right Arm] 139/64 Blood Pressure Mean Blood Pressure Mean [Right Arm] 89 Pulse Oximetry 100 100 Oxygen Delivery Method Room Air Room Air Sepsis Recent Fever Within 48 Hours Sepsis New/Unexplained Change in Mental Status Sepsis Action Taken by Nursing 12/22/23 09:05 12/22/23 09:32 12/22/23 10:00 Temperature Temperature Source Pulse Rate 68 Pulse Rate [Apical] 77 70 Respiratory Rate 20 18 18 Blood Pressure Blood Pressure [Right Arm] 153/95 H 150/76 H Blood Pressure Mean Blood Pressure Mean [Right Arm] 114 100 Pulse Oximetry 100 99 98 Oxygen Delivery Method Room Air Room Air Room Air Sepsis Recent Fever Within 48 Hours Sepsis New/Unexplained Change in Mental Status Sepsis Action Taken by Nursing 12/22/23 10:00 12/22/23 11:59 Temperature Temperature Source Pulse Rate Pulse Rate [Apical] 70 66 Respiratory Rate 18 18 Blood Pressure Blood Pressure [Right Arm] 150/76 H 134/64 Blood Pressure Mean Blood Pressure Mean [Right Arm] 100 87 Pulse Oximetry 98 97 Oxygen Delivery Method Room Air Room Air Sepsis Recent Fever Within 48 Hours Sepsis New/Unexplained Change in Mental Status Sepsis Action Taken by Group Home Medications Current Medication List: was personally reviewed by me Laboratory Data Attestation: I reviewed the patient's lab results. 12/22/23 08:45 12/22/23 08:45 Lab Results 12/22/23 12/22/23 Range/Units 08:45 09:03 WBC 5.43 (4.8-10.8) K/ul RBC 4.49 L (4.70-6.10) M/uL Hgb 14.1 (14.0-18.0) g/dl Hct 40.1 L (42.0-52.0) % MCV 89.3 (80.0-100.0) fL MCH 31.4 (25.0-34.0) pg MCHC 35.2 (32.0-36.0) g/dL RDW Std Deviation 39.7 (36.4-46.3) fL RDW Coeff of Angel Luis 12.2 (11.5-14.5) % Plt Count 135 (130-400) K/uL MPV 9.9 (9.4-12.4) fL Immature Gran % (Auto) 0.4 % Neut % (Auto) 77.0 % Lymph % (Auto) 13.8 % Gray % (Auto) 7.7 % Eos % (Auto) 0.9 % Baso % (Auto) 0.2 % Neut # (Auto) 4.18 (1.40-6.50) K/uL Lymph # (Auto) 0.75 L (1.20-3.40) K/uL Gray # (Auto) 0.42 (0.11-0.59) K/uL Eos # (Auto) 0.05 (0.00-0.50) K/uL Baso # (Auto) 0.01 (0.00-0.20) K/uL Immature Gran # (Auto) 0.02 (0.01-0.20) K/uL PT 11.7 (9.0-12.0) Seconds INR 1.1 (0.9-1.1) Sodium 138 (136-145) mmol/L Potassium 4.1 (3.5-5.1) mmol/L Chloride 106 (98-107) mmol/L Carbon Dioxide 26 (21-32) mmol/L Anion Gap 6 (3-11) BUN 18 (6-23) mg/dl Creatinine 0.85 (0.6-1.4) mg/dl Est Cr Clr Drug Dosing 147.1 ml/min Est GFR ( Amer) 118.6 ml/min Est GFR (Non-Af Amer) 102.3 ml/min BUN/Creatinine Ratio 21.2 H (10-20) Glucose 100 H (70-99(Fasting)) mg/dl POC Glucose 86 (70-99) mg/dl Calcium 8.9 (8.6-10.3) mg/dl Total Bilirubin 0.9 (0.2-1.0) mg/dl AST 21 (13-39) U/L ALT 13 (7-52) U/L Alkaline Phosphatase 48 (34-104) U/L Total Protein 6.1 (6.0-8.3) gm/dl Albumin 4.2 (3.4-5.0) gm/dl Globulin 1.9 L (2.5-4.0) gm/dl Albumin/Globulin Ratio 2.2 H (0.9-2) Administered Medications Discontinued Medications Sodium Chloride (Nss) 1,000 mls @ 999 mls/hr IV .Q1H1M DEREJE Stop: 12/22/23 09:45 Last Infusion: 12/22/23 10:08 Dose: Infused Documented By: Admin: 12/22/23 09:08 Dose: 999 mls/hr Documented By: RENNY Acetaminophen (Ofirmev) 1,000 mg in 100 mls @ 400 mls/hr IV NOW STA Stop: 12/22/23 10:36 Last Infusion: 12/22/23 12:32 Dose: Infused Documented By: Admin: 12/22/23 11:40 Dose: 400 mls/hr Documented By: RENNY Ioversol (Optiray 320 125ml) 120 ml IV ONCE ONE Stop: 12/22/23 09:04 Last Admin: 12/22/23 09:03 Dose: 120 ml Documented By: JAYCEE Morphine Sulfate (Morphine Sulfate 4 Mg/Ml 1 Ml Carp\Vial) 4 mg IV NOW STA Stop: 12/22/23 09:31 Last Admin: 12/22/23 09:39 Dose: 4 mg Documented By: RENNY Morphine Sulfate (Morphine Sulfate 10 Mg/Ml Carp/Vial) 6 mg IV NOW STA Stop: 12/22/23 10:23 Last Admin: 12/22/23 10:29 Dose: 6 mg Documented By: JKB Imaging Data Radiologist's Impression: Head CTA 12/22/23 08:40 HEAD CTA HISTORY: fall, leg weakness TECHNIQUE: Multiaxial CT images of the head were performed following the intravenous administration of contrast to evaluate the major cerebral vessels. 3D/MIP images were also obtained. Sagittal and coronal reformats were reviewed. A dose lowering technique was utilized adhering to the principles of ALARA. COMPARISON: Head CT 12/22/2023. FINDINGS: Frontal scalp swelling again noted. The major dural venous sinuses are patent. There is suboptimal opacities within the distal cerebral arteries. Visualized intracranial internal carotid arteries, distal vertebral arteries, and basilar artery are widely patent. There is no significant stenosis, occlusion, or aneurysm seen within the bilateral ACAs, MCAs, or steaming cabinet tender. IMPRESSION: No significant stenosis, occlusion, or aneurysm within the [place]. Frontal scalp swelling again noted. ACT 112: Negative or not required by law. Electronically signed by: Yemi Mckinley M.D. 12/22/2023 9:[address] 12/22/23 08:40 CT lumbar spine wo con CLINICAL HISTORY: back pain, decreased mobility TECHNIQUE: Multidetector row helical CT of the lumbar spine was performed without administration of intravenous contrast. Coronal and sagittal reformations were obtained. Automated dose lowering techniques and/or adjustment according to patient size were utilized for this exam. Comparison: None available at the time of this dictation. FINDINGS: For counting purposes, the last complete intervertebral disc space is considered L5-S1. No acute fractures are identified. Degenerative changes are noted in the visualized spine. Vertebral body alignment is within normal limits. Surrounding soft tissues are unremarkable. IMPRESSION: Degenerative changes without evidence of acute bony injury. ACT 112: Negative or not required by law. Electronically signed by: Antoni Worrell M.D. 12/22/2023 9:14 AM Neck CTA 12/22/23 08:40 CT angio neck with con CLINICAL HISTORY: fall, leg weakness TECHNIQUE: CT angiography of the neck was performed following intravenous administration of iodinated contrast. Coronal and sagittal MIPS were obtained from the axial data set and were submitted for review. Automated dose lowering techniques and/or adjustment according to patient size were utilized for this examination. All measurements were calculated based on NASCET criteria. CT DOSE: 3740.16 mGy.cm Comparison: None available at the time of this dictation. FINDINGS: Lungs and soft tissues are unremarkable. CTA Neck: A 3 vessel aortic arch is shown. There is no significant atherosclerotic plaque in the aortic arch or the origins of the innominate, left common carotid, and left subclavian arteries. The common carotid, external carotid, cervical segments of the internal carotid arteries, and the cervical segments of the vertebral arteries are patent without hemodynamically significant stenosis. The left vertebral artery is dominant. IMPRESSION: No occlusion, hemodynamically significant stenosis, or dissection in the major cervical arteries. Assessment of stenosis of the internal carotid arteries is based on NASCET criteria. ACT 112: Negative or not required by law. Electronically signed by: Antoni Worrell M.D. 12/22/2023 9:[address] 12/22/23 08:41 CT cervical spine wo con CLINICAL HISTORY: Trauma TECHNIQUE: Multidetector row helical CT of the cervical spine was performed without administration of intravenous contrast. Coronal and sagittal reformations were obtained. Automated dose lowering techniques and/or adjustment according to patient size were utilized for this exam. Comparison: None available at the time of this dictation. FINDINGS: No acute fractures or subluxations are identified. Degenerative changes are seen in the visualized spine. The alignment is normal. Soft tissues are unremarkable. IMPRESSION: Degenerative changes without evidence of acute bony injury. ACT 112: Negative or not required by law. Electronically signed by: Antoni Worrell M.D. 12/22/2023 9:[address] 12/22/23 08:[address] DOSE: HISTORY: Trauma TECHNIQUE: Multiaxial CT images of the head were performed without the use of intravenous contrast. Automated exposure control was utilized for this study. A dose lowering technique was utilized adhering to the principles of ALARA. Comparison: None. Findings: Trace fluid level within the right maxillary sinus. Frontal scalp swelling. The calvarium and skull base are intact. The ventricles and sulci are within normal limits. There is no mass, hematoma, midline shift, or acute infarct. Impression: No acute intracranial abnormality. Frontal scalp swelling. ACT 112: Negative or not required by law. Electronically signed by: Yemi Mckinley M.D. 12/22/2023 9:13 AM Cervical Spine MRI 12/22/23 09:29 CLINICAL HISTORY: fall, neck pain, weakness L arm/leg, pain in hands TECHNIQUE: MRI of the cervical spine is performed utilizing various T1 and T2 sequences in the axial and sagittal planes. IV contrast was not administered for this examination. Comparison: Comparison is made to CT cervical spine 12/22/2023 FINDINGS: The alignment is anatomical. C2-C3: Unremarkable. C3-C4: Broad-based posterior disc bulge is seen with mild canal stenosis and moderate bilateral neural foraminal stenosis. C4-C5: Facet arthropathy results in moderate left and mild right neuroforaminal stenosis. C5-C6: Prominent posterior disc bulge results in moderate canal stenosis, AP diameter is 6 mm, and severe bilateral neuroforaminal stenosis. C6-C7: Broad-based posterior disc bulge is seen with moderate canal stenosis, AP diameter and 7 mm, and moderate bilateral neuroforaminal stenosis. C7-T1: Unremarkable. The spinal ligaments are intact, without evidence of disruption or abnormal signal intensity. The spinal cord is normal in signal intensity and there is no evidence of cord edema. There is no evidence of an extradural, intradural, extramedullary or intramedullary lesion. Soft tissue edema is seen about C5 at the site of a nondisplaced spinous process fracture. Visualized brain parenchyma is normal. IMPRESSION: 1. Nondisplaced fracture of the spinous process of C5. The vertebral bodies and articular facets are unaffected. 2. Multilevel degenerative changes with up to moderate canal stenosis, AP diameter 6 mm, and severe bilateral foraminal stenosis. ACT 112: Negative or not required by law. Electronically signed by: Antoni Worrell M.D. 12/22/2023 11:49 AM Discharge Plan Visit Data Chief Complaint: Trauma ED Provider: Kavin Miller Discharge Problem: Fall, Left leg weakness, Hand pain, Contusion of scalp Patient Disposition: Admitted As Inpatient Discharge Instructions Interventions: ED Discharge Assessment Last Done: 12/22/23 14:42 Discharge Problem: Fall Qualifiers: Encounter type: initial encounter Qualified Code(s): W19.XXXA - Unspecified fall, initial encounter Hand pain Qualifiers: Laterality: bilateral Qualified Code(s): M79.641 - Pain in right hand; M79.642 - Pain in left hand Contusion of scalp Qualifiers: Encounter type: initial encounter Qualified Code(s): S00.03XA - Contusion of scalp, initial encounter
[2023-12-22 09:02] LABS: Basophils # (auto) 0.01 K/uL (0.00-0.20); Basophils % (auto) 0.2 %; Eosinophils # (auto) 0.05 K/uL (0.00-0.50); Eosinophils % (auto) 0.9 %; Hematocrit (blood only) 40.1 % (42.0-52.0); Hemoglobin 14.1 g/dl (14.0-18.0); Immature Granulocytes # (auto) 0.02 K/uL (0.01-0.20); Immature Granulocytes % (auto) 0.4 %; Lymphocytes # (auto) 0.75 K/uL (1.20-3.40); Lymphocytes % (auto) 13.8 %; Mean Corpuscular Hemoglobin 31.4 pg (25.0-34.0); Mean Corpuscular Hgb Conc 35.2 g/dL (32.0-36.0); Mean Corpuscular Volume 89.3 fL (80.0-100.0); Mean Platelet Volume 9.9 fL (9.4-12.4); Monocytes # (auto) 0.42 K/uL (0.11-0.59); Monocytes % (auto) 7.7 %; Neutrophils # (auto) 4.18 K/uL (1.40-6.50); Platelet Count 135 K/uL (130-400); RDW Coefficient of Variation 12.2 % (11.5-14.5); RDW Standard Deviation 39.7 fL (36.4-46.3); Red Blood Count 4.49 M/uL (4.70-6.10); White Blood Count 5.43 K/ul (4.8-10.8)
[2023-12-22] MEDS: OPTIRAY 320 125ml IV ONE (09:03)
[2023-12-22] MEDS: SODIUM CHLORIDE 0.9% 1,000 ML IV SCH ×2 (09:08→16:17)
[2023-12-22 09:09] LABS: INR 1.1 (0.9-1.1); Prothrombin Time 11.7 Seconds (9.0-12.0)
--- NOTE | 2023-12-22 09:14 | CT Scan Report ---
CT cervical spine wo con CLINICAL HISTORY: Trauma TECHNIQUE: Multidetector row helical CT of the cervical spine was performed without administration of intravenous contrast. Coronal and sagittal reformations were obtained. Automated dose lowering techn iques and/or adjustment according to patient size were utilized for this exam. Comparison: None available at the time of this dictation. FINDINGS: No acute fractures or subluxations are identified. Degenerative changes are seen in the visualized sp ine. The alignment is normal. Soft tissues are unremarkable. IMPRESSION: Degenerative changes without evidence of acute bony injury. ACT 112: Negative or not required by law. Electronically signed by: Antoni Worrell M.D. 12/22/2023 9:13 AM
--- NOTE | 2023-12-22 09:14 | CT Scan Report ---
HEAD CT NONCONTRAST CT DOSE: HISTORY: Trauma TECHNIQUE: Multiaxial CT images of the head were performed without the use of intravenous contrast. A utomated exposure control was utilized for this study. A dose lowering technique was utilized adheri ng to the principles of ALARA. Comparison: None. Findings: Trace fluid level within the right maxillary sinus. Frontal scalp swelling. The calvarium a nd skull base are intact. The ventricles and sulci are within normal limits. There is no mass, hemato ma, midline shift, or acute infarct. Impression: No acute intracranial abnormality. Frontal scalp swelling. ACT 112: Negative or not required by law. Electronically signed by: Yemi Mckinley M.D. 12/22/2023 9:13 AM
--- NOTE | 2023-12-22 09:15 | CT Scan Report ---
CT lumbar spine wo con CLINICAL HISTORY: back pain, decreased mobility TECHNIQUE: Multidetector row helical CT of the lumbar spine was performed without administration of i ntravenous contrast. Coronal and sagittal reformations were obtained. Automated dose lowering techniq ues and/or adjustment according to patient size were utilized for this exam. Comparison: None available at the time of this dictation. FINDINGS: For counting purposes, the last complete intervertebral disc space is considered L5-S1. No acute fractures are identified. Degenerative changes are noted in the visualized spine. Vertebral body alignment is within normal limits. Surrounding soft tissues are unremarkable. IMPRESSION: Degenerative changes without evidence of acute bony injury. ACT 112: Negative or not required by law. Electronically signed by: Antoni Worrell M.D. 12/22/2023 9:14 AM
[2023-12-22 09:19] LABS: Albumin Globulin Ratio 2.2 (0.9-2); Albumin Level 4.2 gm/dl (3.4-5.0); BUN Creatinine Ratio 21.2 (10-20); Bilirubin,Total 0.9 mg/dl (0.2-1.0); Calcium 8.9 mg/dl (8.6-10.3); Creatinine Clr Calc Pharmacy 147.1 ml/min; Est GFR (African American) 118.6 ml/min; Est GFR (Non-African American) 102.3 ml/min; Globulin 1.9 gm/dl (2.5-4.0); Potassium 4.1 mmol/L (3.5-5.1); Total Protein 6.1 gm/dl (6.0-8.3)
--- NOTE | 2023-12-22 09:20 | CT Scan Report ---
HEAD CTA HISTORY: fall, leg weakness TECHNIQUE: Multiaxial CT images of the head were performed following the intravenous administration o f contrast to evaluate the major cerebral vessels. 3D/MIP images were also obtained. Sagittal and co sriram reformats were reviewed. A dose lowering technique was utilized adhering to the principles of A DEMETRI. COMPARISON: Head CT 12/22/2023. FINDINGS: Frontal scalp swelling again noted. The major dural venous sinuses are patent. There is sub optimal opacities within the distal cerebral arteries. Visualized intracranial internal carotid arter ies, distal vertebral arteries, and basilar artery are widely patent. There is no significant stenosi s, occlusion, or aneurysm seen within the bilateral ACAs, MCAs, or job estimator. IMPRESSION: No significant stenosis, occlusion, or aneurysm within the [place]. Frontal scalp swelling a gain noted. ACT 112: Negative or not required by law. Electronically signed by: Yemi Mckinley M.D. 12/22/2023 9:18 AM
--- NOTE | 2023-12-22 09:21 | CT Scan Report ---
CT angio neck with con CLINICAL HISTORY: fall, leg weakness TECHNIQUE: CT angiography of the neck was performed following intravenous administration of iodinated contrast. Coronal and sagittal MIPS were obtained from the axial data set and were submitted for rev iew. Automated dose lowering techniques and/or adjustment according to patient size were utilized fo r this examination. All measurements were calculated based on NASCET criteria. CT DOSE: 3740.16 mGy.cm Comparison: None available at the time of this dictation. FINDINGS: Lungs and soft tissues are unremarkable. CTA Neck: A 3 vessel aortic arch is shown. There is no significant atherosclerotic plaque in the aor tic arch or the origins of the innominate, left common carotid, and left subclavian arteries. The co mmon carotid, external carotid, cervical segments of the internal carotid arteries, and the cervical segments of the vertebral arteries are patent without hemodynamically significant stenosis. The left vertebral artery is dominant. IMPRESSION: No occlusion, hemodynamically significant stenosis, or dissection in the major cervical arteries. Assessment of stenosis of the internal carotid arteries is based on NASCET criteria. ACT 112: Negative or not required by law. Electronically signed by: Antoni Worrell M.D. 12/22/2023 9:19 AM
--- NOTE | 2023-12-22 09:38 | Electrocardiogram Report ---
Test Reason : Blood Pressure : */* mmHG Vent. Rate : 66 BPM Atrial Rate : 66 BPM P-R Int : 176 ms QRS Dur : 98 ms QT Int : 466 ms P-R-T Axes : 64 4 -25 degrees QTcB Int : 488 ms Sinus rhythm with Premature atrial complexes Otherwise normal ECG When compared with ECG of 25-Nov-2022 06:03, Premature atrial complexes are now Present Confirmed by Iván Naqvi ([id number]) on 12/22/2023 9:38:00 AM Referred By: [facility] Confirmed By: Iván Naqvi
[2023-12-22] MEDS: MoRPHine SULFATE 4 MG/ML 1 ML CARP\\VIAL IV STA (09:39)
[2023-12-22] MEDS: MoRPHine SULFATE 10 MG/ML CARP/VIAL IV STA (10:29)
[2023-12-22] MEDS: ACETAMINOPHEN 1,000 MG/100 ML VIAL IV STA (11:40)
--- NOTE | 2023-12-22 11:51 | Magnetic Resonance Report ---
CLINICAL HISTORY: fall, neck pain, weakness L arm/leg, pain in hands TECHNIQUE: MRI of the cervical spine is performed utilizing various T1 and T2 sequences in the axial and sagittal planes. IV contrast was not administered for this examination. Comparison: Comparison is made to CT cervical spine 12/22/2023 FINDINGS: The alignment is anatomical. C2-C3: Unremarkable. C3-C4: Broad-based posterior disc bulge is seen with mild canal stenosis and moderate bilateral neura l foraminal stenosis. C4-C5: Facet arthropathy results in moderate left and mild right neuroforaminal stenosis. C5-C6: Prominent posterior disc bulge results in moderate canal stenosis, AP diameter is 6 mm, and se ariela bilateral neuroforaminal stenosis. C6-C7: Broad-based posterior disc bulge is seen with moderate canal stenosis, AP diameter and 7 mm, a nd moderate bilateral neuroforaminal stenosis. C7-T1: Unremarkable. The spinal ligaments are intact, without evidence of disruption or abnormal signal intensity. The spi nal cord is normal in signal intensity and there is no evidence of cord edema. There is no evidence o f an extradural, intradural, extramedullary or intramedullary lesion. Soft tissue edema is seen about C5 at the site of a nondisplaced spinous process fracture. Visualized brain parenchyma is normal. IMPRESSION: 1. Nondisplaced fracture of the spinous process of C5. The vertebral bodies and articular facets are unaffected. 2. Multilevel degenerative changes with up to moderate canal stenosis, AP diameter 6 mm, and severe bilateral foraminal stenosis. ACT 112: Negative or not required by law. Electronically signed by: Antoni Worrell M.D. 12/22/2023 11:49 AM
--- NOTE | 2023-12-22 13:24 | History & Physical Report ---
Date of Service December 22, 2023 Assessment & Plan (1) Cervical spine fracture: (2) Acquired right foot drop: (3) A-fib: (4) Vitamin D deficiency: (5) Anxiety: (6) GERD (gastroesophageal reflux disease): (7) HTN (hypertension): (8) Syncope: Plan Pt is a 48yo incarcerated male with PMhx significant for atrial fibrillation not currently on anticoagulation, ADHD, nightmare disorder, MDD, R Foot drop, OA, DDD, Vit D deficiency, chronic pain presenting after a syncopal episode and concern for loss of function in his left leg. Per pt, second syncopal episode that started since he started intermittent fasting 5 days ago with recent dose increase in home medication prazosin. 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 Per custodial, was possibly on the ground for about 20 mins Started intermittent fasting 5 days ago, eats between 10:30 and 4pm only, fish and nuts, notes not typically hydrated. MRI c spine noting fracture c5 spinous process Head CT unremarkable Head and neck CTA noting no acute findings Syncope likely in setting or possible orthostasis with home meds prazosin, metoprolol etc in setting of intermittent fasting. Will defer on orthostatic testing in setting of cervical fracture Telemetry monitoring to rule out a cardiac cause such as heart block given pt's atrial fibrillation Hx on dofetilide and metoprolol. Echo pending Cardiology consult for possible med adjustment in setting of intermittent fasting. [place] [facility] [place]will decrease prazosin to 2mg qhs (continue to wean), hold home metoprolol tartrate 37.5mg tonight. Continue dofetilide 500mcg -per pt no intermittent fasting while hospitalized, just needs high protein diet -appreciate further cardiology recs Ortho spine consult for cervical fracture, continue cervical collar at this time Fall precautions IV fluids Pain control- on scheduled IV tylenol with prn Toradol for mild-moderate pain and prn Dilaudid for severe pain PT/OT once medically stable Continue to monitor LLE weakness Stroke rule out Pt notes inability to move his left leg Was a stroke alert on arrival, per telestroke, no TNK Head CT, head and neck CTA with no acute findings Brain MRI pending Echo pending as above Known Hx of right foot drop, follows with ortho spine, being worked up for possible surgery Lumbar spine noting degenerative changes Ortho spine consult as above PT/OT once medically stable per ortho Speech consult Continue to monitor Nightmare disorder- prazosin dose decreased to 2mg qhs, from 4mg recent increase. Consider further wean in setting of intermittent fasting Atrial fibrillation- currently in sinus, holding home metoprolol 37.5mg tonight. Appreciate further cardiology recs. Continue home dofetilide 500mcg BID. Pt not currently on anticoagulation per last cardiology visit in chart dated 03/12/23. ADHD- continue home atomoxetine Chronic Pain, DDD- continue home duloxetine and gabapentin. Consider decreasing gabapentin dose Mood disorder- continue home trazodone, Cymbalta Diet: HH, high protein DVT prophylaxis: SCDs at this time CODE STATUS: per pt would like intubation but no resuscitation Dispo: Admit to PCU/tele History of Present Illness Chief Complaint: syncope Primary Care Provider: KRISTINE Shoemaker Pt is a 48yo incarcerated male with PMhx significant for atrial fibrillation not currently on anticoagulation, ADHD, nightmare disorder, MDD, R Foot drop, OA, DDD, Vit D deficiency, chronic pain presenting after a syncopal episode and concern for loss of function in his left leg. Per pt, second syncopal episode that started since he started intermittent fasting 5 days ago with recent dose increase in home medication prazosin. 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 Per custodial, was possibly on the ground for about 20 mins. Pt states that he started intermittent fasting 5 days ago, eats between 10:30 and 4pm only, fish and nuts, notes not typically hydrated. States that this is his second syncopal episode. Usually feels dizzy before he passes out. Denies N/V or sweats. States he has lost 9lbs since he started the intermittent fasting 5 days ago. Notes he previously weighed >400lbs at one time. States he takes the prazosin for nightmares and the dose was recently increased. Notes he also takes metoprolol for his history of a fib. Pt states that he is very concerned that he will not walk again. States he is due to have surgery for his foot drop in [place], but needs an MRI first. Pt was a stroke alert on arrival in the ED. Per telestroke eval, no TNK. Allergies Allergy/AdvReac Type Severity Reaction Status Date / Time No Known Allergies Allergy Verified 07/31/23 13:38 Home Medications Medication Instructions Recorded Confirmed Type dofetilide 500 mcg capsule 500 mcg PO BID 06/11/22 12/22/23 History (Tikosyn) gabapentin 800 mg tablet 800 mg PO TID 06/11/22 12/22/23 History potassium chloride 10 mEq 10 meq PO DAILY #30 tabs 10/11/22 12/22/23 Rx tablet,extended release(part/cryst) prazosin 2 mg capsule 4 mg PO HS 10/11/22 12/22/23 History metoprolol tartrate 37.5 mg tablet 37.5 mg PO DAILY #30 tabs 11/25/22 12/22/23 Rx duloxetine 60 mg capsule,delayed 60 mg PO BID 03/12/23 12/22/23 History release atomoxetine 60 mg capsule 60 mg PO DAILY 12/22/23 12/22/23 History ergocalciferol (vitamin D2) 1,250 1,250 mcg PO DAILY 12/22/23 12/22/23 History mcg (50,000 unit) capsule (Drisdol) trazodone 100 mg tablet 100 mg PO HS 12/22/23 12/22/23 History Past Med/Surg History Problem List (Updated 12/22/23 @ 14:45 by July Swift MD) Syncope Cervical spine fracture Acquired right foot drop Paresthesia of right lower extremity Atrial fibrillation Atrial fibrillation with RVR (Acute) Sacroiliitis Lumbar radiculopathy H/O paroxysmal supraventricular tachycardia Lumbar pain with radiation down right leg HTN (hypertension) GERD (gastroesophageal reflux disease) Anxiety Vitamin D deficiency A-fib (Acute) Social History Smoking Status: Unknown if ever smoked Hx Alcohol Use: No Hx Substance Use: Yes Preferred Language: Divehi Communication Ability: Effective Hearing Ability: Normal Practice Support Specialist Required: No Beliefs That Will Affect Care: None Current Living Situation: Other Current Living Situation Comment: [place] Feels Safe at Home: Yes Assistive Devices: Glasses Review of Systems Review of Systems: All systems reviewed & are unremarkable except as noted in Subjective Physical Exam Physical Exam: General: Alert, oriented. No acute distress, bruising on face Skin: bruising on face, right knee Psych: Appropriate mood and affect Neuro: L>R weakness in left foot, left leg and left thigh. Left hand, third and fourth digits in flexion, painful to touch HEENT: NC, facial bruises CV: RRR Resp: Breath sounds clear bilaterally, no increased effort of breathing Abdomen: Soft, nontender, nondistended Extremities: L>R weakness in left foot, left leg and left thigh. Left hand, third and fourth digits in flexion, painful to touch Results & Data Results & Data Vital Signs (Past 12 Hours) Vital Signs Temp Pulse Pulse Resp BP BP Pulse Ox 12/22/23 11:59 66 18 134/64 97 12/22/23 10:00 70 18 150/76 H 98 12/22/23 10:00 70 18 150/76 H 98 12/22/23 09:32 77 18 153/95 H 99 12/22/23 09:05 68 20 100 12/22/23 08:41 60 12/22/23 08:32 36.4 C L 66 18 139/64 100 12/22/23 08:32 36.4 C L 66 18 139/64 100 12/22/23 08:32 36.4 C L 66 18 139/64 100 12/22/23 08:32 100 12/22/23 08:32 36.4 C L 66 18 139/64 100 O2 Del Method 12/22/23 11:59 Room Air 12/22/23 10:00 Room Air 12/22/23 10:00 Room Air 12/22/23 09:32 Room Air 12/22/23 09:05 Room Air 12/22/23 08:41 12/22/23 08:32 Room Air 12/22/23 08:32 Room Air 12/22/23 08:32 Room Air 12/22/23 08:32 Room Air 12/22/23 08:32 Room Air Diagnostic Findings Head CTA 12/22/23 08:40 HEAD CTA HISTORY: fall, leg weakness TECHNIQUE: Multiaxial CT images of the head were performed following the intravenous administration of contrast to evaluate the major cerebral vessels. 3D/MIP images were also obtained. Sagittal and coronal reformats were reviewed. A dose lowering technique was utilized adhering to the principles of ALARA. COMPARISON: Head CT 12/22/2023. FINDINGS: Frontal scalp swelling again noted. The major dural venous sinuses are patent. There is suboptimal opacities within the distal cerebral arteries. Visualized intracranial internal carotid arteries, distal vertebral arteries, and basilar artery are widely patent. There is no significant stenosis, occlusion, or aneurysm seen within the bilateral ACAs, MCAs, or software engineer mobile. IMPRESSION: No significant stenosis, occlusion, or aneurysm within the [place]. Frontal scalp swelling again noted. ACT 112: Negative or not required by law. Electronically signed by: Yemi Mckinley M.D. 12/22/2023 9:[address] 12/22/23 08:40 CT lumbar spine wo con CLINICAL HISTORY: back pain, decreased mobility TECHNIQUE: Multidetector row helical CT of the lumbar spine was performed without administration of intravenous contrast. Coronal and sagittal reformations were obtained. Automated dose lowering techniques and/or adjustment according to patient size were utilized for this exam. Comparison: None available at the time of this dictation. FINDINGS: For counting purposes, the last complete intervertebral disc space is considered L5-S1. No acute fractures are identified. Degenerative changes are noted in the visualized spine. Vertebral body alignment is within normal limits. Surrounding soft tissues are unremarkable. IMPRESSION: Degenerative changes without evidence of acute bony injury. ACT 112: Negative or not required by law. Electronically signed by: Antoni Worrell M.D. 12/22/2023 9:14 AM Neck CTA 12/22/23 08:40 CT angio neck with con CLINICAL HISTORY: fall, leg weakness TECHNIQUE: CT angiography of the neck was performed following intravenous administration of iodinated contrast. Coronal and sagittal MIPS were obtained from the axial data set and were submitted for review. Automated dose lowering techniques and/or adjustment according to patient size were utilized for this examination. All measurements were calculated based on NASCET criteria. CT DOSE: 3740.16 mGy.cm Comparison: None available at the time of this dictation. FINDINGS: Lungs and soft tissues are unremarkable. CTA Neck: A 3 vessel aortic arch is shown. There is no significant atherosclerotic plaque in the aortic arch or the origins of the innominate, left common carotid, and left subclavian arteries. The common carotid, external carotid, cervical segments of the internal carotid arteries, and the cervical segments of the vertebral arteries are patent without hemodynamically significant stenosis. The left vertebral artery is dominant. IMPRESSION: No occlusion, hemodynamically significant stenosis, or dissection in the major cervical arteries. Assessment of stenosis of the internal carotid arteries is based on NASCET criteria. ACT 112: Negative or not required by law. Electronically signed by: Antoni Worrell M.D. 12/22/2023 9:[address] 12/22/23 08:41 CT cervical spine wo con CLINICAL HISTORY: Trauma TECHNIQUE: Multidetector row helical CT of the cervical spine was performed without administration of intravenous contrast. Coronal and sagittal reformations were obtained. Automated dose lowering techniques and/or adjustment according to patient size were utilized for this exam. Comparison: None available at the time of this dictation. FINDINGS: No acute fractures or subluxations are identified. Degenerative changes are seen in the visualized spine. The alignment is normal. Soft tissues are unremarkable. IMPRESSION: Degenerative changes without evidence of acute bony injury. ACT 112: Negative or not required by law. Electronically signed by: Antoni Worrell M.D. 12/22/2023 9:[address] 12/22/23 08:[address] DOSE: HISTORY: Trauma TECHNIQUE: Multiaxial CT images of the head were performed without the use of intravenous contrast. Automated exposure control was utilized for this study. A dose lowering technique was utilized adhering to the principles of ALARA. Comparison: None. Findings: Trace fluid level within the right maxillary sinus. Frontal scalp swelling. The calvarium and skull base are intact. The ventricles and sulci are within normal limits. There is no mass, hematoma, midline shift, or acute infarct. Impression: No acute intracranial abnormality. Frontal scalp swelling. ACT 112: Negative or not required by law. Electronically signed by: Yemi Mckinley M.D. 12/22/2023 9:13 AM Cervical Spine MRI 12/22/23 09:29 CLINICAL HISTORY: fall, neck pain, weakness L arm/leg, pain in hands TECHNIQUE: MRI of the cervical spine is performed utilizing various T1 and T2 sequences in the axial and sagittal planes. IV contrast was not administered for this examination. Comparison: Comparison is made to CT cervical spine 12/22/2023 FINDINGS: The alignment is anatomical. C2-C3: Unremarkable. C3-C4: Broad-based posterior disc bulge is seen with mild canal stenosis and moderate bilateral neural foraminal stenosis. C4-C5: Facet arthropathy results in moderate left and mild right neuroforaminal stenosis. C5-C6: Prominent posterior disc bulge results in moderate canal stenosis, AP diameter is 6 mm, and severe bilateral neuroforaminal stenosis. C6-C7: Broad-based posterior disc bulge is seen with moderate canal stenosis, AP diameter and 7 mm, and moderate bilateral neuroforaminal stenosis. C7-T1: Unremarkable. The spinal ligaments are intact, without evidence of disruption or abnormal signal intensity. The spinal cord is normal in signal intensity and there is no evidence of cord edema. There is no evidence of an extradural, intradural, extramedullary or intramedullary lesion. Soft tissue edema is seen about C5 at the site of a nondisplaced spinous process fracture. Visualized brain parenchyma is normal. IMPRESSION: 1. Nondisplaced fracture of the spinous process of C5. The vertebral bodies and articular facets are unaffected. 2. Multilevel degenerative changes with up to moderate canal stenosis, AP diameter 6 mm, and severe bilateral foraminal stenosis. ACT 112: Negative or not required by law. Electronically signed by: Antoni Worrell M.D. 12/22/2023 11:49 AM (3) A-fib Atrial fibrillation type: paroxysmal Qualified Code(s): I48.0 - Paroxysmal atrial fibrillation
[2023-12-22] MEDS: ACETAMINOPHEN 1,000 MG/100 ML VIAL IV SCH (16:18)
[2023-12-22] MEDS: KETOROLAC TROMETHAMINE 15 MG/ML VIAL IV PRN (16:38)
[2023-12-22] MEDS: GADOBUTROL 65ML VIAL IV ONE (17:43)
--- NOTE | 2023-12-22 18:54 | Magnetic Resonance Report ---
MRI OF THE BRAIN COMBO CLINICAL HISTORY: Syncopal episodes. COMPARISON STUDY: CT of the brain dated 12/22/2023. TECHNIQUE: MRI of the brain was performed utilizing various T1 and T2-weighted sequences in the axial , sagittal, and coronal planes. Contrast-enhanced sequences were acquired following the administratio n of 12 cc of Gadavist. FINDINGS: Brain parenchyma: There is a subtle focus of T2/FLAIR signal abnormality within the anterior the ante rior pole of the right frontal lobe seen on coronal FLAIR image #5 and axial T2 weighted image #10. T his measures approximately 3 cm and the appearance favors a nonhemorrhagic contusion. There is no cor responding abnormal postcontrast enhancement. No hemorrhage is clearly seen on the T1-weighted sequen david. There is no significant mass effect. There is no restricted diffusion typical for acute ischemia . No enhancing mass lesion is identified on the postcontrast images. No extra-axial fluid collection is seen. The cerebellar tonsils are normal in configuration. Ventricles, sulci, and cisterns: Normal in configuration. Pituitary and sella: Unremarkable. Intracranial vasculature: Normal flow voids are maintained at the skull base. Orbits: The bony orbits are grossly intact. Orbital contents are normal in appearance. Sinuses and mastoids: There is mild mucosal thickening within the maxillary and ethmoid sinuses. The mastoid air cells are clear. Calvarium: Unremarkable. Soft tissues: There is a frontal scalp contusion/hematoma. Cervical cord: Partially visualized cervical spinal cord is normal in morphology and signal intensity . IMPRESSION: 1. There is no hemorrhage, enhancing mass, or evidence of acute ischemia. 2. There is an approximately 3 cm focus of T2/FLAIR signal abnormality in the frontal pole of the rig ht frontal lobe. Given the presence of a large frontal scalp contusion/hematoma this favors a nonhemo rrhagic contusion. A follow-up MRI in several weeks' time is recommended for reassessment. 3. No additional similar appearing foci of signal abnormality are identified. 4. Additional findings as above. ACT 112: Negative or not required by law. Electronically signed by: Hugo Palma M.D. 12/22/2023 6:51 PM
[2023-12-22] MEDS: GABAPENTIN 800 MG TAB PO SCH (20:30)
[2023-12-22] MEDS: DULoxetine HCL 60 MG CAP PO SCH (20:30)
[2023-12-22] MEDS: PRAZOSIN HCL 1 MG CAP PO SCH (20:30)
[2023-12-22] MEDS: traZODone HCL 100 MG TAB PO SCH (20:30)
[2023-12-22] MEDS: DOFETILIDE 125 MCG CAPSULE PO SCH (20:33)
[2023-12-22] MEDS: HYDROmorphone INJ 0.5 MG/0.5 ML SYR IV PRN (20:43)
[2023-12-23 06:54] LABS: Hematocrit (blood only) 38.5 % (42.0-52.0); Hemoglobin 13.5 g/dl (14.0-18.0); Mean Corpuscular Hemoglobin 31.5 pg (25.0-34.0); Mean Corpuscular Hgb Conc 35.1 g/dL (32.0-36.0); Mean Platelet Volume 9.8 fL (9.4-12.4); Platelet Count 128 K/uL (130-400); RDW Coefficient of Variation 12.6 % (11.5-14.5); RDW Standard Deviation 41.1 fL (36.4-46.3); Red Blood Count 4.28 M/uL (4.70-6.10); White Blood Count 4.78 K/ul (4.8-10.8)
[2023-12-23 07:04] LABS: Albumin Globulin Ratio 2.2 (0.9-2); BUN Creatinine Ratio 13.5 (10-20); Bilirubin,Total 0.9 mg/dl (0.2-1.0); Calcium 8.7 mg/dl (8.6-10.3); Creatinine Clr Calc Pharmacy 163.4 ml/min; Est GFR (African American) 125.5 ml/min; Est GFR (Non-African American) 108.3 ml/min; Globulin 1.8 gm/dl (2.5-4.0); Magnesium 1.8 mg/dl (1.7-2.4); Phosphorus 3.8 mg/dl (2.5-4.9); Potassium 4.2 mmol/L (3.5-5.1); Total Protein 5.8 gm/dl (6.0-8.3)
[2023-12-23] MEDS ORDERED: oxyCODONE HCL IR 5 MG TAB (IMMEDIATE RELEASE) PO PRN (07:59)
--- NOTE | 2023-12-23 08:56 | XCELERA ---
[id number]
[2023-12-23] MEDS: ACETAMINOPHEN 500 MG TAB PO SCH (09:38)
[2023-12-23] MEDS: ERGOCALCIFEROL 1250 MCG (50,000 UNITS) CAP PO SCH (09:39)
[2023-12-23] MEDS: oxyCODONE HCL IR 5 MG TAB (IMMEDIATE RELEASE) PO PRN (09:40)
[2023-12-23] MEDS: POTASSIUM CHLORIDE 10 MEQ TABCR PO SCH (09:40)
[2023-12-23] MEDS: ATOMOXETINE HCL 60 MG CAPSULE PO SCH (10:57)
[2023-12-23] MEDS: CYCLOBENZAPRINE HCL 10 MG TAB PO PRN (11:35)
[2023-12-23] MEDS: ATOMOXETINE HCL 40 MG CAPSULE PO SCH (11:35)
[2023-12-23] MEDS: ATOMOXETINE HCL 10 MG CAPSULE PO SCH (11:35)
--- NOTE | 2023-12-23 11:56 | Orthopedic Consultation ---
Date of Consultation December 23, 2023 Assessment & Plan (1) Cervical myelopathy with cervical radiculopathy: MRI of the cervical spine available for review dated 12/22/2023. I believe there is evidence of signal change within the cord posterior to C5-C6. There is evidence of severe stenosis C5-C6-C7. Assessment acute myelopathy most likely exacerbated from the fall. Plan at this time in light of his presentation and severe neurologic compromise and recommending emergent C6 corpectomy with fusion to adequately decompress the canal and provide the cord with some additional space. Emphasized the patient that it is by no means is a guarantee that he will have return of neurologic function but with provide him the greatest opportunity to obtain improved strength and function over time. Risk- benefit pros cons of terms in detail. At this time we will plan for surgery as soon as possible. History of Present Illness Reason for Consultation: Cervical fracture Attending Physician: Ralph Daigle DO History of Present Illness This is a 48-year-old male presents the emergency room yesterday after a fall and was diagnosed with a C5 spinous process fracture. He is complaining of severe burning in the bilateral hands with weakness in the left hand. He has an established foot drop right lower extremity. This has been present for many months. He has burning into his shoulders and into his shoulder blades. He states he is unable to walk since the fall. Allergies Allergy/AdvReac Type Severity Reaction Status Date / Time No Known Allergies Allergy Verified 07/31/23 13:38 Home Medications Medication Instructions Recorded Confirmed Type dofetilide 500 mcg capsule 500 mcg PO BID 06/11/22 12/22/23 History (Tikosyn) gabapentin 800 mg tablet 800 mg PO TID 06/11/22 12/22/23 History potassium chloride 10 mEq 10 meq PO DAILY #30 tabs 10/11/22 12/22/23 Rx tablet,extended release(part/cryst) prazosin 2 mg capsule 4 mg PO HS 10/11/22 12/22/23 History metoprolol tartrate 37.5 mg tablet 37.5 mg PO DAILY #30 tabs 11/25/22 12/22/23 Rx duloxetine 60 mg capsule,delayed 60 mg PO BID 03/12/23 12/22/23 History release atomoxetine 60 mg capsule 60 mg PO DAILY 12/22/23 12/22/23 History ergocalciferol (vitamin D2) 1,250 1,250 mcg PO DAILY 12/22/23 12/22/23 History mcg (50,000 unit) capsule (Drisdol) trazodone 100 mg tablet 100 mg PO HS 12/22/23 12/22/23 History Patient History Social History Smoking Status: Never smoker Second Hand Exposure: No; Do You Dip or Chew Tobacco: No; Hx Alcohol Use: No Hx Substance Use: No Preferred Language: French Communication Ability: Effective Hearing Ability: Normal Child Care Group Leader Required: No Beliefs That Will Affect Care: None Current Living Situation: Other Current Living Situation Comment: [facility] Other Information That Helps Us Care for You: No Feels Safe at Home: Yes Safety Concerns: Feels Safe At This Time Assistive Devices: None Physical Exam Physical Exam: On physical exam he is in bed cervical collar in place. He is handcuffed to the bed. He demonstrates minimal grasp at a 3-/5 to the left hand. His biceps is 3+ or 5 on the left. On the right he has a 4/5 grasp and 4/5 right bicep. He does have a foot drop on the right. He has some motion of the left lower extremity with hip flexors quadriceps and dorsiflexion but all very weak 4/5 at best. He is sensation to cold and light touch is hyperesthetic to any pressure on his skin in the bilateral upper extremities. Results & Data Vital Signs (Past 12 Hours) Vital Signs Temp Pulse Resp BP Pulse Ox O2 Del Method 12/23/23 08:42 36.8 C 71 7 L 152/93 H 98 Room Air 12/23/23 03:40 36.8 C 75 19 134/77 99 Room Air
--- NOTE | 2023-12-23 12:11 | Cardiology Consultation ---
Date of Consultation December 23, 2023 Assessment & Plan (1) Syncope: (2) Paroxysmal A-fib: (3) HTN (hypertension): Plan Combination of intermittent fasting, alpha blocking agent (prazosin, which can predispose to orthostasis), and occurrence shortly after standing up in patient on beta-roberto (which would blunt reflex tachycardia in the face of hypotension) are all highly suggestive of vasovagal syncope. In addition, he has a history of a prior episode also suggestive of vasovagal phenomenon. Since he notes limited efficacy from the prazosin for his nightmare disorder, would discontinue prazosin altogether. Reasonable that he remain OFF dofetilide, since he has not had recurrent atrial fibrillation for quite some time off this medication, but would recommend that he remain on metoprolol. Fortunate that he was not anticoagulated given his spinous process fracture. With history of recurrent syncope and low [id number] score in patient who seems to be consistently in sinus rhythm, would recommend that he remain OFF anticoagulation. Echocardiogram unremarkable and unchanged from a year ago. Telemetry benign. No further cardiac workup planned, okay for return to jail from a cardiac standpoint. History of Present Illness Reason for Consultation: med management in setting of intermittent fasting Requesting Physician: Ralph Daigle DO Attending Physician: Ralph Daigle DO History of Present Illness 48-year-old man with history of paroxysmal atrial fibrillation (status post 13 cardioversions in 3 pulmonary vein isolations), hypertension, and ADHD/nightmare disorder who was brought from jail after a syncopal episode. His history of atrial fibrillation is longstanding (first diagnosed 2008), but fortunately this has been quiescent recently. He was on dofetilide for some time, but he states that he stopped this about 8 months ago and has not had any symptoms suggesting recurrence of atrial fibrillation during that time. His [id number] score is 0-1, he has not been chronically anticoagulated. He is on metoprolol as a maintenance medication. He takes prazosin for nightmare dream disorder but states that it "doesn't do anything for me". He has been doing intermittent fasting starting 5 days prior to admission and did have a recent increase in his prazosin. Shortly after standing up for role call present he felt lightheaded and had a syncopal episode resulting in cervical spinous process fractures. He had 1 prior episode of syncope which occurred after standing up from the commode and washing his hands in the bathroom. He is in a cervical collar and does have some neck pain and complains of some abdominal "spasms", but he denies any palpitations, chest pain, or dyspnea. Telemetry overnight showed only sinus rhythm in the 60-70 bpm range. Allergies Allergy/AdvReac Type Severity Reaction Status Date / Time No Known Allergies Allergy Verified 07/31/23 13:38 Home Medications Medication Instructions Recorded Confirmed Type dofetilide 500 mcg capsule 500 mcg PO BID 06/11/22 12/22/23 History (Tikosyn) gabapentin 800 mg tablet 800 mg PO TID 06/11/22 12/22/23 History potassium chloride 10 mEq 10 meq PO DAILY #30 tabs 10/11/22 12/22/23 Rx tablet,extended release(part/cryst) prazosin 2 mg capsule 4 mg PO HS 10/11/22 12/22/23 History metoprolol tartrate 37.5 mg tablet 37.5 mg PO DAILY #30 tabs 11/25/22 12/22/23 Rx duloxetine 60 mg capsule,delayed 60 mg PO BID 03/12/23 12/22/23 History release atomoxetine 60 mg capsule 60 mg PO DAILY 12/22/23 12/22/23 History ergocalciferol (vitamin D2) 1,250 1,250 mcg PO DAILY 12/22/23 12/22/23 History mcg (50,000 unit) capsule (Drisdol) trazodone 100 mg tablet 100 mg PO HS 12/22/23 12/22/23 History Patient History Social History Smoking Status: Never smoker Second Hand Exposure: No; Do You Dip or Chew Tobacco: No; Hx Alcohol Use: No Hx Substance Use: No Preferred Language: Mohawk Communication Ability: Effective Hearing Ability: Normal Psychiatric Aides Teacher Required: No Beliefs That Will Affect Care: None Current Living Situation: Other Current Living Situation Comment: [facility] Other Information That Helps Us Care for You: No Feels Safe at Home: Yes Safety Concerns: Feels Safe At This Time Assistive Devices: None Physical Exam Physical Exam: Physically fit appearing adult white male in no distress. Afebrile. Blood pressures have been normotensive or mildly hypertensive. Pulse 70 bpm and regular. Respirations 12 and unlabored skin: no ecchymoses or generalized lesions. HEENT: unremarkable. Neck: Cervical collar limits exam, no obvious abnormalities. Lungs: clear. Cardiac: regular rhythm, normal S1-2, no murmur. Abdomen: benign. Extremities: no edema, pulses intact. Neurologic: normal affect and conversation, nonfocal. Results & Data Vital Signs (Past 12 Hours) Vital Signs Temp Pulse Resp BP Pulse Ox O2 Del Method 12/23/23 08:42 98.2 F 71 7 L 152/93 H 98 Room Air 12/23/23 03:40 98.2 F 75 19 134/77 99 Room Air Laboratory Results Normal electrolytes, BUN 10, creatinine 0.75. Diagnostic Findings ECG showed sinus rhythm with PACs, rate 66 bpm. Echocardiogram showed normal right and left ventricular systolic function, mild LVH, normal RVSP, no significant valvular disease. No change compared with 2022 study. PG Care Time/CCT Total # of Minutes Spent Total Time Spent with Patient: Total time spent is greater than 50% in coordination of care (as documented) at patient's floor/unit and/or counseling patient: Coding Level of Care Code 66516 IN/OBS CONSULT LVL 4,60M Diagnoses Syncope R55 Paroxysmal A-fib I48.0 HTN (hypertension) I10
--- NOTE | 2023-12-23 12:51 | Hospitalist Progress Note ---
Date of Service December 23, 2023 Assessment & Plan (1) Cervical myelopathy with cervical radiculopathy: (2) Paroxysmal A-fib: (3) Contusion of scalp: (4) Concussion and edema of cervical spinal cord, initial encounter: (5) Contusion of right frontal lobe: (6) Vasovagal syncope: (7) HTN (hypertension): Plan Patient presented with acute syncopal event most likely due to vasovagal syncope, compounded by medications and intermittent fasting. Reviewed cardiology consultation, Discontinue prazosin due to orthostasis, remain off of dofetilide. CHADS2 score low, no recommendations for anticoagulation Continue metoprolol. Reviewed orthopedic spine recommendations. Concerned with patient's neurological symptoms, recommending cervical spine surgery as soon as possible Steroids started for anti-inflammatory effect and decrease inflammation and swelling from probable spinal contusion from hyperextension injury Continue Neurontin Oxycodone as needed for pain Medically maximized to undergo anticipated spine surgery 51 minutes spent in coordination of care, review of data, coordinating specialist Admission and Anticipated Discharge Date Admission Date: December 22, 2023 Subjective Patient complaining of bilateral arm paresthesias and weakness. Poor coordination of his fingers left greater than right. Also states having difficulty lifting his left leg Physical Exam Physical Exam: Constitutional: Alert HEENT: Mucous membranes moist. Neck: Rigid cervical collar Lungs: Clear to auscultation, decreased, no wheezes rales or rhonchi CV: S1-S2, regular Abdomen: Soft, nontender, nondistended Extremities: No significant edema Neuro: Decreased coordination/rapid alternating movement hands bilaterally left greater than right, able to lift both arms however does have some drift, weakness left leg. Psych: Cooperative, normal mood Results & Data Results & Data Vital Signs (Past 12 Hours) Vital Signs Temp Pulse Resp BP Pulse Ox O2 Del Method 12/23/23 11:53 36.9 C 81 12 152/87 H 96 Room Air 12/23/23 08:42 36.8 C 71 7 L 152/93 H 98 Room Air 12/23/23 03:40 36.8 C 75 19 134/77 99 Room Air Diagnostic Findings Reviewed imaging, laboratory and diagnostic studies. Pertinent findings as below. Reviewed echocardiogram report, normal ejection fraction Personally reviewed EKG, sinus rhythm Reviewed left shoulder x-ray, no obvious fracture, formal report pending Laboratory studies stable (3) Contusion of scalp Encounter type: initial encounter Qualified Code(s): S00.03XA - Contusion of scalp, initial encounter (5) Contusion of right frontal lobe Loss of consciousness presence/duration: with LOC of 30 min or less
--- NOTE | 2023-12-23 12:54 | XRay Report ---
LEFT SHOULDER 3 VIEWS CLINICAL HISTORY: Fall with left shoulder injury. FINDINGS: 3 views of the left shoulder are obtained. No prior studies are available for comparison at the time of dictation. The skeletal structures are well-mineralized. There is no radiographic eviden ce of fracture or dislocation. The glenohumeral articulation is preserved. Mild productive change is noted at the acromioclavicular joint. The overlying soft tissues are within normal limits. The imaged left lung parenchyma appears clear. IMPRESSION: No acute bony abnormality is identified. Electronically signed by: Hugo Palma M.D. 12/23/2023 12:52 PM
--- NOTE | 2023-12-23 14:44 | Anesthesiology Consultation ---
Date of Service December 23, 2023 Assessment & Plan (1) Encounter for pre-operative examination: Chart Review Chart Review: Acceptable Risk for Surgery (urgent procedure) History Surgery Operation Date: 12/23/23 08:20 Proposed Procedures p C6 Corpectomy - Amadou Simpson DO Height/Weight Height: 6 ft 2 in Weight: 115.9 kg Allergies Allergy/AdvReac Type Severity Reaction Status Date / Time No Known Allergies Allergy Verified 07/31/23 13:38 Medications Home Medications Medication Instructions Recorded Confirmed Last Taken dofetilide 500 mcg capsule 500 mcg PO BID 06/11/22 12/22/23 Unknown (Tikosyn) gabapentin 800 mg tablet 800 mg PO TID 06/11/22 12/22/23 Unknown potassium chloride 10 mEq 10 meq PO DAILY #30 tabs 10/11/22 12/22/23 Unknown tablet,extended release(part/cryst) prazosin 2 mg capsule 4 mg PO HS 10/11/22 12/22/23 Unknown metoprolol tartrate 37.5 mg tablet 37.5 mg PO DAILY #30 tabs 11/25/22 12/22/23 Unknown duloxetine 60 mg capsule,delayed 60 mg PO BID 03/12/23 12/22/23 Unknown release atomoxetine 60 mg capsule 60 mg PO DAILY 12/22/23 12/22/23 Unknown ergocalciferol (vitamin D2) 1,250 1,250 mcg PO DAILY 12/22/23 12/22/23 Unknown mcg (50,000 unit) capsule (Drisdol) trazodone 100 mg tablet 100 mg PO HS 12/22/23 12/22/23 Unknown Active Medications Generic Name Dose Route Start Last Admin Trade Name Nitish PRN Reason Stop Dose Admin Acetaminophen 1,000 mg 12/23/23 09:00 12/23/23 14:01 Acetaminophen 500 Mg Tab PO 01/22/24 08:59 Not Given TID DEREJE Atomoxetine HCl 40 mg 12/23/23 11:00 12/23/23 11:35 Atomoxetine Hcl 40 Mg Capsule PO 01/22/24 10:59 40 mg DAILY DEREJE Administration Atomoxetine HCl 20 mg 12/23/23 11:00 12/23/23 11:35 Atomoxetine Hcl 10 Mg Capsule PO 01/22/24 10:59 20 mg DAILY DEREJE Administration Cyclobenzaprine HCl 10 mg 12/23/23 08:01 12/23/23 11:35 Cyclobenzaprine Hcl 10 Mg Tab PO 01/22/24 08:00 10 mg Q8H PRN Administration Muscle Spasm Dofetilide 500 mcg 12/22/23 21:00 12/23/23 09:38 Dofetilide 125 Mcg Capsule PO 01/21/24 20:59 Not Given BID DEREJE Duloxetine HCl 60 mg 12/22/23 21:00 12/23/23 09:39 Duloxetine Hcl 60 Mg Cap PO 01/21/24 20:59 60 mg BID DEREJE Administration Ergocalciferol 1,250 mcg 12/23/23 09:00 12/23/23 09:39 Ergocalciferol 1250 Mcg (50,000 Units) Cap PO 01/22/24 08:59 1,250 mcg DAILY DEREJE Administration Gabapentin 800 mg 12/22/23 21:00 12/23/23 14:01 Gabapentin 800 Mg Tab PO 01/21/24 20:59 Not Given TID DEREJE Methylprednisolone 16 mg 12/23/23 09:00 12/23/23 09:40 Methylprednisolone 16 Mg Tab PO 01/22/24 08:59 16 mg BID DEREJE Administration Oxycodone HCl 10 mg 12/23/23 07:59 12/23/23 09:40 Oxycodone Hcl Ir 5 Mg Tab (Immediate Release) PO 01/06/24 07:58 10 mg Q4H PRN Administration Severe Pain (Scale 7, 8, 9,10) Potassium Chloride 10 meq 12/23/23 09:00 12/23/23 09:40 Potassium Chloride 10 Meq Tabcr PO 01/22/24 08:59 10 meq DAILY DEREJE Administration Prazosin HCl 2 mg 12/22/23 21:00 12/22/23 20:30 Prazosin Hcl 1 Mg Cap PO 01/21/24 20:59 2 mg HS DEREJE Administration Trazodone HCl 100 mg 12/22/23 21:00 12/22/23 20:30 Trazodone Hcl 100 Mg Tab PO 01/21/24 20:59 100 mg HS DEREJE Administration Past Medical History Medical History (Updated 12/23/23 @ 14:43 by Aaron Taylor MD) History of cardioversion multiple Chronic pain Mood disorder Vasovagal syncope Concussion and edema of cervical spinal cord, initial encounter Paroxysmal A-fib (2008) Cervical spine fracture C5 spinous process HTN (hypertension) GERD (gastroesophageal reflux disease) Past Surgical History Surgical History (Updated 12/23/23 @ 14:42 by Aaron Taylor MD) History of cardiac radiofrequency ablation Social History Smoking Status: Never smoker Do You Dip or Chew Tobacco: No Hx Alcohol Use: No Hx Substance Use: No substance use type: does not use Physical Exam Vital Signs Last Vital Signs Temp 36.9 C 12/23/23 11:53 Pulse 81 12/23/23 11:53 Resp 12 12/23/23 11:53 BP 152/87 H 12/23/23 11:53 Pulse Ox 96 12/23/23 11:53 O2 Del Method Room Air 12/23/23 11:53 Testing Laboratory Results 12/23/23 05:44 12/23/23 05:44 PT 11.7 Seconds (9.0-12.0) 12/22/23 08:45 INR 1.1 (0.9-1.1) 12/22/23 08:45 Electrocardiogram Date: 12/22/23 Findings: + NSR @ (66 with PAC's) Echocardiogram Date: 12/23/23 EF: 65-70% LV Function: normal Other Findings: + LVH (mild) Valvular Disease: + no significant valvular disease
[2023-12-23] MEDS ORDERED: ATROPINE SULFATE 0.1 MG/ML 10ML SYR IV PRN (16:18)
[2023-12-23] MEDS ORDERED: PROMETHAZINE HCL 6.25 MG in SODIUM CHLORIDE 0.9% 50 ML IV PRN (16:18)
[2023-12-23] MEDS ORDERED: ONDANSETRON INJ 2 MG/ML 2 ML VIAL IV PRN ×2 (16:18→20:22)
[2023-12-23] MEDS ORDERED: fentaNYL citrate PF 100 MCG/2 ML VIAL IV PRN (16:18)
[2023-12-23] MEDS ORDERED: ePHEDrine sulfate 50 MG/ML AMP IV PRN (16:18)
[2023-12-23] MEDS ORDERED: ONDANSETRON INJ 2 MG/ML 2 ML VIAL ONE (16:50)
[2023-12-23] MEDS ORDERED: MIDAZOLAM HCL 1 MG/ML 2ML VIAL ONE (16:50)
[2023-12-23] MEDS ORDERED: LIDOCAINE 2% 2 ML VIAL/AMP(20MG/ML) INFIL ONE (16:50)
[2023-12-23] MEDS ORDERED: DEXAMETHASONE SOD INJ 4 MG/ML VIAL ONE (16:50)
[2023-12-23] MEDS ORDERED: PROPOFOL IV EMULSION 10 MG/ML 20 ML VIAL IV ONE (16:50)
[2023-12-23] MEDS ORDERED: fentaNYL citrate PF 100 MCG/2 ML VIAL ONE (16:50)
[2023-12-23] MEDS ORDERED: ROCURONIUM BROMIDE 10 MG/ML 5 ML VIAL IV ONE (16:50)
[2023-12-23] MEDS: ceFAZolin 2000MG 2,000 MG/15 ML SYR IV ONE (17:24)
[2023-12-23] MEDS ORDERED: DexMEDEtomidine HCL IV 100 MCG/ML VIAL IV ONE (17:29)
[2023-12-23] MEDS ORDERED: SUGAMMADEX SODIUM 200 MG/2 ML VIAL IV ONE (17:42)
[2023-12-23] MEDS ORDERED: HYDROmorphone INJ 2 MG/ML SYR/VIAL ONE (17:57)
[2023-12-23] MEDS: ceFAZolin 330 MG/ML 1 GM VIAL ONE (18:18)
[2023-12-23] MEDS: FLOSEAL HEMOSTATIC MATRIX 10ML TOP ONE (18:45)
--- NOTE | 2023-12-23 19:13 | Operative Report ---
Post Operative Report Pre & Post Diagnosis Operation Date: 12/23/23 08:20 Pre-Op Diagnosis: Cervical myelopathy with cervical radiculopathy Post-Op Diagnosis: Cervical myelopathy with cervical radiculopathy Disruption of the C5-C6 annulus consistent with an unstable fracture I identified the patient and participated in the time-out.: Yes Procedure Operation Date: 12/23/23 08:20 Actual Procedures #1 anterior cervical discectomy with bilateral foraminotomies C5-C6 C6-C7. #2 anterior cervical arthrodesis C5-C6 C6-C7. #3 placement 8 mm Spira cage filled with os design bone graft C5-C6 C6-C7. #4 placement of Z plate and screws from C5-C7. Surgeon Amadou Simpson, DO Packer Operator [employer] Selina Machuca Estimated Blood Loss 20 Findings See Below Patient had obvious disruption of the entire annulus of C5 once this was exposed. There is blood in the subfascial layers extending to the body of C6. Specimens none Indications This is a 48-year-old male who presents to the emergency room after a fall. After evaluation I felt that he had evidence of cord damage and subsequently recommended emergent stabilization and decompression. Description of Procedure Patient was met with identified informed consent obtained. Patient was then taken to the operative suite underwent ablation placed in spine position on the Rudolph table with a head [place] head ordered. All bony promises well-padded eyes inspected to ensure no external pressure placed upon the. This point the anterior cervical spine was prepped and draped in normal sterile fashion. With the assistance of fluoroscopy identified the C6 vertebral body. A transverse incision was then placed along the right anterior aspect of the cervical spine overlying his region. Blunt dissection with assistance of bipolar cautery is performed down to and exposing the anterior cervical spine from from C5-C7. Upon exposure of the prevertebral fascia there was obvious bleeding and gross disruption of the annulus of C5-C6. Subsequently aborted the concept of a corpectomy and opted for greater stabilization. Therefore I performed a complete discectomy of C5-C6 out to the uncovertebral bilaterally removal of all posterior annular fibers longitudinal ligament and any fragments within the canal endplates burred to subcortical bleeding bone and 8 mm Spira cage filled with os design tapped in position. Then proceeded to C6-C7. Then complete discectomy performed up to the computer was bilaterally. [place] distracting pins again utilized. Removed all posterior fibers longitudinal ligament bilateral foraminotomies performed. Endplates burred to subcortical bleeding bone and 8 mm Spira cage with os design bone graft tapped in position. Plate and screws was applied with the assistance of fluoroscopy. The incision was then explored to ensure no damage to surrounding structures remaining bleeding. 10 round RANI drain inserted. The incision was then closed with 2 Vicryl in the fascia and 4 Monocryl for fascial closure. Steri-Strips sterile dressing placed. Patient waken taken to PACU stable condition. Please note spinal cord monitoring was utilized at the procedure no changes noted. Selina Machuca was present out the entire procedure and all the patient positioning complex portion of the surgery and final skin closure. I attest to the content of the Intraoperative Record and any orders documented therein. Any exceptions are noted below.
[2023-12-23] MEDS ORDERED: NALOXONE HCL 0.4 MG/1 ML VIAL/CARP IV PRN (20:22)
[2023-12-23] MEDS ORDERED: METOCLOPRAMIDE HCL INJ 5 MG/ML 2 ML VIAL IV PRN (20:22)
[2023-12-23] MEDS ORDERED: dexAMETHasone 8 MG in SYRINGE 0 ML IV PRN (20:22)
[2023-12-23] MEDS ORDERED: ONDANSETRON 4 MG OD TAB PO PRN (20:22)
[2023-12-23] MEDS ORDERED: PROMETHAZINE 12.5 MG/50.5 ML BAG IV PRN (20:22)
[2023-12-23] MEDS ORDERED: MAGNESIUM HYDROXIDE SUSP 30 ML UDC PO PRN (20:22)
[2023-12-23] MEDS ORDERED: ALUMINUM/MAGNESIUM SUSP 30 ML UDC PO PRN (20:22)
[2023-12-23] MEDS ORDERED: hydrOXYzine HCl 25 MG TAB PO PRN (20:22)
[2023-12-23] MEDS ORDERED: FAMOTIDINE 20 MG TAB PO PRN (20:22)
[2023-12-23] MEDS ORDERED: RACEPINEPHRINE 2.25% NEBU SOLN 0.5 ML VIAL INH PRN (20:22)
[2023-12-23] MEDS ORDERED: ACETAMINOPHEN 500 MG TAB PO PRN (20:22)
[2023-12-23] MEDS ORDERED: DO NOT ADMINISTER FLU VACCINE PRN (20:22)
[2023-12-23] MEDS ORDERED: bisacodyL 10 MG SUPP PR PRN (20:22)
[2023-12-23] MEDS ORDERED: HYDROmorphone INJ 0.5 MG/0.5 ML SYR IV PRN (20:22)
[2023-12-23] MEDS ORDERED: ACETAMINOPHEN 1,000 MG/100 ML VIAL IV PRN (20:22)
[2023-12-23] MEDS ORDERED: SOD PHOSPHATE/SOD BIPHOSPHATE ENEMA 132 ML BTL PR PRN (20:22)
[2023-12-23] MEDS ORDERED: DO NOT ADMINISTER PNEUMOCOCCAL VACCINE PRN (20:22)
[2023-12-23] MEDS ORDERED: diphenhydrAMINE Capsule 25 MG CAP PO PRN (20:22)
[2023-12-23] MEDS ORDERED: LORazepam 0.5 MG in SYRINGE 0.25 ML IV PRN (20:22)
[2023-12-23] MEDS: LACTATED RINGER'S 1,000 ML IV SCH (20:31)
--- NOTE | 2023-12-23 20:52 | Fluoroscopy Report ---
INTRAOPERATIVE RADIOGRAPHS CLINICAL HISTORY: C6 corpectomy. Fluoro time: 13 seconds Ka,r: 2.19 mGy FINDINGS: 2 spot fluoroscopic views of the cervical spine are presented. There is postsurgical change from discectomy and anterior spinal fusion seen consecutive levels in the lower cervical spine. The levels are difficult to delineate on the provided images, and this is likely at C5 C7. The orthopedic hardware appears intact. An endotracheal tube is in place. IMPRESSION: Intraoperative images from cervical spinal fusion surgery as above. Electronically signed by: Hugo Palma M.D. 12/23/2023 8:50 PM
--- NOTE | 2023-12-23 21:07 | Anesthesiology Progress Note ---
Date of Service December 23, 2023 Anesthesia Post Procedure Vital Signs Vital Signs: Temp Pulse Pulse Resp BP BP BP 12/23/23 20:32 137/88 12/23/23 20:32 137/88 12/23/23 20:32 137/88 12/23/23 20:30 77 13 12/23/23 20:18 76 15 12/23/23 20:09 127/81 12/23/23 20:09 127/81 12/23/23 20:09 127/81 12/23/23 19:50 73 12 125/77 12/23/23 19:40 74 19 125/74 12/23/23 19:30 75 15 121/71 12/23/23 19:23 36.2 C L 73 17 109/64 12/23/23 15:38 37.4 C 93 H 20 169/82 H 12/23/23 15:25 88 16 143/65 H 12/23/23 15:24 89 16 12/23/23 15:24 143/86 H 12/23/23 15:24 143/86 H 12/23/23 15:06 85 14 12/23/23 14:33 90 17 12/23/23 14:00 93 H 17 12/23/23 13:42 89 10 L 12/23/23 13:03 83 17 12/23/23 12:33 78 5 L 12/23/23 12:12 83 8 L 12/23/23 11:53 36.9 C 81 12 152/87 H 12/23/23 11:36 78 9 L 12/23/23 11:03 74 16 12/23/23 10:33 75 15 12/23/23 10:09 80 9 L 12/23/23 09:45 82 31 H 12/23/23 08:51 71 12 12/23/23 08:42 152/93 H 12/23/23 08:42 152/93 H 12/23/23 08:42 36.8 C 71 7 L 152/93 H 12/23/23 08:24 80 8 L 12/23/23 08:12 74 7 L 12/23/23 07:30 77 13 12/23/23 07:00 77 20 12/23/23 06:39 74 12 12/23/23 06:12 76 14 12/23/23 05:39 76 14 12/23/23 05:06 77 13 12/23/23 04:30 76 12 12/23/23 04:00 79 13 12/23/23 03:40 36.8 C 75 19 134/77 12/23/23 03:39 134/77 12/23/23 03:38 84 20 12/23/23 03:35 76 16 12/23/23 03:12 77 13 12/23/23 02:56 82 14 12/23/23 02:05 82 17 12/23/23 01:32 80 12 12/23/23 01:11 86 20 12/23/23 00:32 79 15 12/23/23 00:00 76 15 12/22/23 23:13 83 12/22/23 22:59 37.0 C 78 18 124/67 Pulse Ox O2 Del Method O2 Flow Rate 12/23/23 20:32 12/23/23 20:32 12/23/23 20:32 12/23/23 20:30 96 12/23/23 20:18 95 12/23/23 20:09 12/23/23 20:09 12/23/23 20:09 12/23/23 19:50 95 Room Air 12/23/23 19:40 100 Oxymask 5 12/23/23 19:30 99 Oxymask 15 12/23/23 19:23 98 Oxymask 15 12/23/23 15:38 96 Room Air 12/23/23 15:25 94 Room Air 12/23/23 15:24 12/23/23 15:24 12/23/23 15:24 12/23/23 15:06 12/23/23 14:33 12/23/23 14:00 12/23/23 13:42 12/23/23 13:03 12/23/23 12:33 12/23/23 12:12 12/23/23 11:53 96 Room Air 12/23/23 11:36 12/23/23 11:03 12/23/23 10:33 12/23/23 10:09 12/23/23 09:45 12/23/23 08:51 12/23/23 08:42 12/23/23 08:42 12/23/23 08:42 98 Room Air 12/23/23 08:24 12/23/23 08:12 12/23/23 07:30 12/23/23 07:00 12/23/23 06:39 12/23/23 06:12 12/23/23 05:39 12/23/23 05:06 12/23/23 04:30 12/23/23 04:00 12/23/23 03:40 99 Room Air 12/23/23 03:39 12/23/23 03:38 99 12/23/23 03:35 98 12/23/23 03:12 98 12/23/23 02:56 98 12/23/23 02:05 98 12/23/23 01:32 98 12/23/23 01:11 98 12/23/23 00:32 98 12/23/23 00:00 98 12/22/23 23:13 12/22/23 22:59 98 Room Air Pain Intensity Bilateral Hand: Pain Intensity: 4 Transfer of Care Handoff Completed per policy Notes Mental Status: alert / awake / arousable Patient Amnestic to Procedure: Yes Nausea / Vomiting: adequately controlled Pain: adequately controlled Airway Patency, RR, SpO2: stable & adequate BP & HR: stable & adequate Hydration State: stable & adequate Anesthetic Complications: no major complications apparent and Pt Satisfied with anesthetic care
[2023-12-23] MEDS: DOCUSATE SODIUM/SENNA 50/8.6MG TAB PO SCH (21:13)
[2023-12-23] MEDS: ceFAZolin 2,000 MG/15 ML IV PUSH IV ONE (21:38)
[2023-12-24] MEDS: ceFAZolin 2000MG 2,000 MG/15 ML SYR IV SCH (01:00)
[2023-12-24] MEDS: dexAMETHasone 8 MG in SYRINGE 0 ML IV SCH (01:45)
[2023-12-24] MEDS: POLYETHYLENE (MIRALAX) 17 GM PACK PO SCH (05:38)
--- NOTE | 2023-12-24 08:09 | Orthopedic Progress Note ---
Date of Service December 24, 2023 Assessment & Plan (1) Injury of cervical spinal cord due to closed fracture of cervical vertebra: Plan: At this time he will maintain his collar at all times except for hygiene purposes. He may begin physical therapy as tolerated. Will continue IV Decadron for the next 48 to 72 hours. Admission and Anticipated Discharge Date Admission Date: December 22, 2023 Subjective Patient still has burning bilateral hands. He feels his function is about the same. He is noting marked improvement of his left and right leg function. Pain is controlled otherwise. Physical Exam Physical Exam: Drain is functioning in a collar is in place. His hand function is still diminished bilaterally. I do note marked increased function to testing the lower extremities from his preoperative status. Results & Data Vital Signs (Past 12 Hours) Vital Signs Temp Pulse Pulse Resp BP BP Pulse Ox 12/24/23 07:38 81 14 95 12/24/23 07:00 92 H 12/24/23 06:52 37.0 C 82 14 133/80 96 12/24/23 04:52 86 14 129/94 96 12/24/23 04:02 36.6 C 96 H 16 133/86 95 12/24/23 03:25 105 H 18 96 12/24/23 02:00 36.8 C 82 18 124/73 94 12/24/23 01:33 79 16 94 12/24/23 01:00 90 19 94 12/24/23 00:33 92 H 13 94 12/24/23 00:10 124/74 12/24/23 00:09 90 11 L 93 12/23/23 23:30 121/74 12/23/23 23:30 121/74 12/23/23 23:16 91 H 12/23/23 23:09 98 H 16 94 12/23/23 23:06 36.9 C 92 H 18 109/72 93 12/23/23 22:39 99 H 16 92 12/23/23 22:30 99 H 14 92 12/23/23 22:30 123/72 12/23/23 22:30 123/72 12/23/23 22:30 123/72 12/23/23 22:00 117/71 12/23/23 22:00 36.7 C 93 H 12 117/71 93 12/23/23 21:48 95 H 15 97 12/23/23 21:00 139/84 08/20/24 21:00 36.6 C 80 16 139/84 97 12/23/23 21:00 139/84 12/23/23 21:00 76 19 94 12/23/23 20:34 139/83 12/23/23 20:34 139/83 12/23/23 20:34 139/83 12/23/23 20:33 77 14 97 12/23/23 20:32 137/88 12/23/23 20:32 137/88 12/23/23 20:32 137/88 12/23/23 20:30 77 13 96 12/23/23 20:18 76 15 95 12/23/23 20:09 127/81 12/23/23 20:09 127/81 12/23/23 20:09 127/81 O2 Del Method 12/24/23 07:38 Room Air 12/24/23 07:00 12/24/23 06:52 Room Air 12/24/23 04:52 Room Air 12/24/23 04:02 Room Air 12/24/23 03:25 Room Air 12/24/23 02:00 12/24/23 01:33 12/24/23 01:00 12/24/23 00:33 12/24/23 00:10 12/24/23 00:09 12/23/23 23:30 12/23/23 23:30 12/23/23 23:16 12/23/23 23:09 12/23/23 23:06 12/23/23 22:39 Room Air 12/23/23 22:30 12/23/23 22:30 12/23/23 22:30 12/23/23 22:30 12/23/23 22:00 12/23/23 22:00 12/23/23 21:48 12/23/23 21:00 12/23/23 21:00 Room Air 12/23/23 21:00 12/23/23 21:00 12/23/23 20:34 12/23/23 20:34 12/23/23 20:34 12/23/23 20:33 12/23/23 20:32 12/23/23 20:32 12/23/23 20:32 12/23/23 20:30 12/23/23 20:18 12/23/23 20:09 12/23/23 20:09 12/23/23 20:09
[2023-12-24] MEDS: HYDROmorphone INJ 1 MG/ML SYRINGE IV PRN (10:51)
--- NOTE | 2023-12-24 11:12 | Cardiology Progress Note ---
Date of Service December 24, 2023 Assessment & Plan (1) Syncope: (2) Paroxysmal A-fib: (3) HTN (hypertension): Plan As noted, syncope felt to be vasovagal/orthostatic hypotension, he should remain off prazosin. In order to help prevent recurrent atrial fibrillation (and manage rate if it does recur) his routine metoprolol dose should be restarted currently, reviewing his medications suggest that he may be taking metoprolol to tartrate 25 mg daily (med rec notes 37.5 mg but he takes only 1 pill daily). Apparently, metoprolol succinate is not readily available at the present, therefore recommended that upon return his beta-roberto be adjusted to metoprolol tartrate 12.5 mg twice daily (which is the dose he should be restarted on here as well). Due to low CHADS2-Vasc score and recurrent syncope, he should remain off anticoagulation. Telemetry benign, no evidence of recurrent atrial fibrillation, reasonable to remain off dofetilide. Will sign off, please contact if any change in his cardiac status.. Admission and Anticipated Discharge Date Admission Date: December 22, 2023 Subjective Patient doing well after cervical spine surgery yesterday. No chest pain, dyspnea, or palpitations. No lightheadedness, presyncope, or syncope. Telemetry showed sinus rhythm in the 80 bpm range. Physical Exam Physical Exam: No distress. Hemodynamics favorable. skin: no ecchymoses or generalized lesions. HEENT: unremarkable. Neck: Cervical collar limits exam, no obvious abnormalities. Lungs: clear. Cardiac: regular rhythm, normal S1-2, no murmur. Abdomen: benign. Extremities: no edema, pulses intact. Neurologic: normal affect and conversation, nonfocal. Results & Data Vital Signs (Past 12 Hours) Vital Signs Temp Pulse Pulse Pulse Resp BP BP 12/24/23 10:52 87 16 126/74 12/24/23 08:52 90 15 141/82 H 12/24/23 07:38 81 14 12/24/23 07:00 92 H 12/24/23 06:52 98.6 F 82 14 133/80 12/24/23 04:52 86 14 129/94 12/24/23 04:02 97.9 F 96 H 16 133/86 12/24/23 03:25 105 H 18 12/24/23 02:00 98.2 F 82 18 124/73 12/24/23 01:33 79 16 12/24/23 01:00 90 19 12/24/23 00:33 92 H 13 12/24/23 00:10 124/74 12/24/23 00:09 90 11 L 12/23/23 23:30 121/74 12/23/23 23:30 121/74 12/23/23 23:16 91 H Pulse Ox O2 Del Method 12/24/23 10:52 92 Room Air 12/24/23 08:52 93 Room Air 12/24/23 07:38 95 Room Air 12/24/23 07:00 12/24/23 06:52 96 Room Air 12/24/23 04:52 96 Room Air 12/24/23 04:02 95 Room Air 12/24/23 03:25 96 Room Air 12/24/23 02:00 94 12/24/23 01:33 94 12/24/23 01:00 94 12/24/23 00:33 94 12/24/23 00:10 12/24/23 00:09 93 12/23/23 23:30 12/23/23 23:30 12/23/23 23:16 PG Care Time/CCT Total # of Minutes Spent Total Time Spent with Patient: Total time spent is greater than 50% in coordination of care (as documented) at patient's floor/unit and/or counseling patient: Coding Level of Care Code 27777 SUB INP/OBS CARE 2/35MIN Diagnoses Syncope R55 Paroxysmal A-fib I48.0 HTN (hypertension) I10
--- NOTE | 2023-12-24 12:55 | Hospitalist Progress Note ---
Date of Service December 24, 2023 Assessment & Plan (1) Cervical myelopathy with cervical radiculopathy: Plan: Cervical spine surgery on 12/23/2023 #1 anterior cervical discectomy with bilateral foraminotomies C5-C6 C6-C7. #2 anterior cervical arthrodesis C5-C6 C6-C7. #3 placement 8 mm Spira cage filled with os design bone graft C5-C6 C6-C7. #4 placement of Z plate and screws from C5-C7. (2) Paroxysmal A-fib: (3) Contusion of scalp: (4) Concussion and edema of cervical spinal cord, initial encounter: (5) Contusion of right frontal lobe: (6) Vasovagal syncope: (7) HTN (hypertension): Plan Patient doing well postoperatively. Continues to require hospital level care for rehabilitation and monitoring Transfer to [facility] telemetry Postoperative care per spine surgeon Discontinue IV fluids Transition to all oral medications Order appropriate cardiac meds as recommended by cardiology Metoprolol for rate control Patient currently not a candidate for anticoagulation Therapies Monitor basic labs in a.m. Case management to pursue logistics of possible acute rehab versus returning to the snf Admission and Anticipated Discharge Date Admission Date: December 22, 2023 Subjective Patient reports that pain is somewhat improved. Complains of left wrist decreased range of motion and pain Physical Exam Physical Exam: Constitutional: Alert HEENT: Mucous membranes moist. Neck: Rigid cervical collar with RANI drain from surgical site Lungs: Clear to auscultation, decreased, no wheezes rales or rhonchi CV: S1-S2, regular Abdomen: Soft, nontender, nondistended Extremities: No significant edema Neuro: Upper extremity paresthesias, improved, coordination somewhat improved Psych: Cooperative, normal mood Results & Data Results & Data Vital Signs (Past 12 Hours) Vital Signs Temp Pulse Pulse Pulse Resp BP BP 12/24/23 11:27 89 16 12/24/23 10:52 87 16 126/74 12/24/23 08:52 90 15 141/82 H 12/24/23 07:38 81 14 12/24/23 07:00 92 H 12/24/23 06:52 37.0 C 82 14 133/80 12/24/23 04:52 86 14 129/94 12/24/23 04:02 36.6 C 96 H 16 133/86 12/24/23 03:25 105 H 18 12/24/23 02:00 36.8 C 82 18 124/73 12/24/23 01:33 79 16 12/24/23 01:00 90 19 Pulse Ox O2 Del Method 12/24/23 11:27 93 Room Air 12/24/23 10:52 92 Room Air 12/24/23 08:52 93 Room Air 12/24/23 07:38 95 Room Air 12/24/23 07:00 12/24/23 06:52 96 Room Air 12/24/23 04:52 96 Room Air 12/24/23 04:02 95 Room Air 12/24/23 03:25 96 Room Air 12/24/23 02:00 94 12/24/23 01:33 94 12/24/23 01:00 94 Diagnostic Findings Reviewed imaging, laboratory and diagnostic studies. Pertinent findings as below. Left shoulder x-ray no acute fractures (3) Contusion of scalp Encounter type: initial encounter Qualified Code(s): S00.03XA - Contusion of scalp, initial encounter (5) Contusion of right frontal lobe Loss of consciousness presence/duration: with LOC of 30 min or less
[2023-12-24] MEDS: METOPROLOL TARTRATE 25 MG TAB PO SCH (13:20)
--- NOTE | 2023-12-24 20:16 | XRay Report ---
XR wrist LT min 3V routine CLINICAL HISTORY: pain TECHNIQUE: 4 views of the left wrist were obtained. Comparison: None available at the time of this dictation. FINDINGS: There is no evidence of an acute fracture. Joint spaces are well-preserved. No soft tissue abnormalit y is seen. IMPRESSION: No evidence of acute osseous injury. ACT 112: Negative or not required by law. Electronically signed by: Antoni Worrell M.D. 12/24/2023 8:15 PM
[2023-12-25 05:53] LABS: Hematocrit (blood only) 39.8 % (42.0-52.0); Hemoglobin 13.9 g/dl (14.0-18.0); Mean Corpuscular Hgb Conc 34.9 g/dL (32.0-36.0); Mean Corpuscular Volume 88.8 fL (80.0-100.0); Mean Platelet Volume 10.1 fL (9.4-12.4); Platelet Count 148 K/uL (130-400); RDW Coefficient of Variation 12.4 % (11.5-14.5); RDW Standard Deviation 40.5 fL (36.4-46.3); Red Blood Count 4.48 M/uL (4.70-6.10); White Blood Count 8.14 K/ul (4.8-10.8)
[2023-12-25 06:12] LABS: BUN Creatinine Ratio 18.7 (10-20); Calcium 9.5 mg/dl (8.6-10.3); Creatinine Clr Calc Pharmacy 161.2 ml/min; Est GFR (African American) 124.8 ml/min; Est GFR (Non-African American) 107.7 ml/min; Magnesium 1.8 mg/dl (1.7-2.4)
--- NOTE | 2023-12-25 08:36 | Orthopedic Progress Note ---
Date of Service December 25, 2023 Assessment & Plan (1) Injury of cervical spinal cord due to closed fracture of cervical vertebra: Plan: This time we will continue physical therapy occupational therapy. He can discontinue his drain today. Will continue IV Decadron for another 24 hours. Admission and Anticipated Discharge Date Admission Date: December 22, 2023 Subjective Patient still struggling with significant burning in his hands. He is noting some improvement of function of left lower extremity. He was able to stand yesterday with physical therapy. Physical Exam Physical Exam: Patient demonstrates very limited function to the left hand with finger extensors and flexors. He has reasonable left hip flexion quadriceps dorsiflexion plantarflexion but still quite diminished to 3+/5. Results & Data Vital Signs (Past 12 Hours) Vital Signs Temp Pulse Pulse Resp BP Pulse Ox O2 Del Method 12/25/23 07:35 36.8 C 68 18 126/88 96 Room Air 12/25/23 06:08 63 15 123/76 93 Room Air 12/25/23 05:30 36.7 C 70 16 131/80 93 Room Air 12/25/23 04:41 36.7 C 63 18 94 Room Air 12/25/23 04:01 120/66 12/24/23 22:22 89 16 92 Room Air 12/24/23 22:12 83
--- NOTE | 2023-12-25 10:24 | Hospitalist Progress Note ---
Date of Service December 25, 2023 Assessment & Plan (1) Cervical myelopathy with cervical radiculopathy: Plan: Cervical spine surgery on 12/23/2023 #1 anterior cervical discectomy with bilateral foraminotomies C5-C6 C6-C7. #2 anterior cervical arthrodesis C5-C6 C6-C7. #3 placement 8 mm Spira cage filled with os design bone graft C5-C6 C6-C7. #4 placement of Z plate and screws from C5-C7. (2) Paroxysmal A-fib: (3) Contusion of scalp: (4) Concussion and edema of cervical spinal cord, initial encounter: (5) Contusion of right frontal lobe: (6) Vasovagal syncope: (7) HTN (hypertension): (8) Urinary retention: Plan Patient is status post significant trauma to cervical spine requiring operative intervention Continue postoperative care Continue therapies Continue cervical spine immobilization Continue IV steroids Communication with Dr. Simpson, spine surgery, agrees with continuing steroids as directed by his order, states that patient will most likely need prolonged rehab stay Continue metoprolol, heart rate controlled Laboratory studies stable, monitor intermittently as needed Continue other outpatient medications Case management to pursue rehab placement Continue to reassure patient that his recovery will take weeks to months Admission and Anticipated Discharge Date Admission Date: December 22, 2023 Subjective Patient still having a lot of pain in his hands. Able to move left leg better than yesterday. Issues with urinary retention overnight, placing Granado catheter this morning Physical Exam Physical Exam: Constitutional: Alert HEENT: Mucous membranes moist. Neck: Rigid cervical collar, RANI drain in place, anterior incisional dressing clean and dry Lungs: Clear to auscultation, decreased, no wheezes rales or rhonchi CV: S1-S2, regular Abdomen: Soft, nontender, nondistended Extremities: No significant edema Neuro: Decreased strength and coordination in the hands left greater than right Decreased strength left leg Psych: Cooperative, normal mood Results & Data Results & Data Vital Signs (Past 12 Hours) Vital Signs Temp Pulse Resp BP Pulse Ox O2 Del Method 12/25/23 07:35 36.8 C 68 18 126/88 96 Room Air 12/25/23 06:08 63 15 123/76 93 Room Air 12/25/23 05:30 36.7 C 70 16 131/80 93 Room Air 12/25/23 04:41 36.7 C 63 18 94 Room Air 12/25/23 04:01 120/66 12/24/23 22:22 89 16 92 Room Air Diagnostic Findings Reviewed imaging, laboratory and diagnostic studies. Pertinent findings as below. Hemoglobin 13.9 stable Basic metabolic profile within normal ranges Personally reviewed wrist x-ray from yesterday, no fracture (3) Contusion of scalp Encounter type: initial encounter Qualified Code(s): S00.03XA - Contusion of scalp, initial encounter (5) Contusion of right frontal lobe Loss of consciousness presence/duration: with LOC of 30 min or less
[2023-12-25] MEDS: dexAMETHasone 8 MG in SYRINGE 0 ML IV SCH (14:07)
[2023-12-25] MEDS ORDERED: oxyCODONE HCL IR 5 MG TAB (IMMEDIATE RELEASE) PO PRN (15:06)
[2023-12-25] MEDS: oxyCODONE HCL IR 5 MG TAB (IMMEDIATE RELEASE) PO PRN (17:48)
--- NOTE | 2023-12-26 11:48 | Hospitalist Progress Note ---
Date of Service December 26, 2023 Assessment & Plan (1) Cervical myelopathy with cervical radiculopathy: Plan: Cervical spine surgery on 12/23/2023 #1 anterior cervical discectomy with bilateral foraminotomies C5-C6 C6-C7. #2 anterior cervical arthrodesis C5-C6 C6-C7. #3 placement 8 mm Spira cage filled with os design bone graft C5-C6 C6-C7. #4 placement of Z plate and screws from C5-C7. (2) Paroxysmal A-fib: Plan: No chronic anticoagulation (3) Contusion of scalp: (4) Concussion and edema of cervical spinal cord, initial encounter: (5) Contusion of right frontal lobe: (6) Vasovagal syncope: (7) HTN (hypertension): (8) Urinary retention: Plan Patient slowly progressing, continue to reassure her and explained that it may take weeks to months to get his strength back. Continue postoperative care as directed by Dr. Simpson Continue current medical management, Pain medications increased yesterday, improved control Continue therapies Case management to continue to pursue rehab placement Admission and Anticipated Discharge Date Admission Date: December 22, 2023 Subjective No acute issues overnight. Patient reports getting a little bit more movement in his left lower extremity and left hand Physical Exam Physical Exam: Constitutional: Alert HEENT: Mucous membranes moist. Neck: In rigid cervical brace, RANI drain removed Lungs: Clear to auscultation, decreased, no wheezes rales or rhonchi CV: S1-S2, regular Abdomen: Soft, nontender, nondistended Extremities: No significant edema Neuro: Still very difficult to open and close fingers of left hand, left arm improved range of motion, left lower extremity improved strength, able to lift off of the bed easier however still significant drift Psych: Cooperative, normal mood Results & Data Results & Data Vital Signs (Past 12 Hours) Vital Signs Temp Pulse Pulse Resp BP Pulse Ox O2 Del Method 12/26/23 11:25 36.7 C 70 20 150/83 H 93 Room Air 12/26/23 08:00 36.7 C 60 18 109/74 96 Room Air 12/26/23 08:00 59 L 12/26/23 03:18 36.8 C 59 L 16 122/75 93 Room Air (3) Contusion of scalp Encounter type: initial encounter Qualified Code(s): S00.03XA - Contusion of scalp, initial encounter (5) Contusion of right frontal lobe Loss of consciousness presence/duration: with LOC of 30 min or less
--- NOTE | 2023-12-26 13:53 | Orthopedic Progress Note ---
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 Ultimately he will require rehab placement. Admission and Anticipated Discharge Date Admission Date: December 22, 2023 Subjective Patient is having no swallowing difficulties. He still struggling with left hand function. He was able to stand and ambulate a few steps yesterday with physical therapy. Otherwise his pain is controlled. Physical Exam Physical Exam: On exam he demonstrates an improved strength the left lower extremity. Still marked deficits with hand extension and flexion including wrist extension on the left. Results & Data Vital Signs (Past 12 Hours) Vital Signs Temp Pulse Pulse Resp BP Pulse Ox O2 Del Method 12/26/23 11:25 36.7 C 70 20 150/83 H 93 Room Air 12/26/23 08:00 36.7 C 60 18 109/74 96 Room Air 12/26/23 08:00 59 L 12/26/23 03:18 36.8 C 59 L 16 122/75 93 Room Air
[2023-12-26] MEDS: OMEGA-3 (PURIFIED FISH OIL) 1 GM CAP PO SCH (17:26)
[2023-12-26] MEDS: MULTIVITAMIN TAB PO SCH (17:27)
--- NOTE | 2023-12-27 09:44 | Orthopedic Progress Note ---
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 Will need to begin process of rehab placement early next week. Admission and Anticipated Discharge Date Admission Date: December 22, 2023 Subjective Patient is still struggling with hand pain requiring oxycodone and Neurontin. Otherwise she is making steady progress with physical therapy. Physical Exam Physical Exam: Left hand function is still compromised. Left lower extremity is improving. Results & Data Vital Signs (Past 12 Hours) Vital Signs Temp Pulse Resp BP Pulse Ox O2 Del Method 12/27/23 07:25 36.4 C L 60 18 124/72 94 Room Air 12/26/23 23:39 36.5 C 68 18 135/75 93 Room Air
--- NOTE | 2023-12-27 12:00 | Hospitalist Progress Note ---
Date of Service December 27, 2023 Assessment & Plan (1) Cervical myelopathy with cervical radiculopathy: Plan: Cervical spine surgery on 12/23/2023 #1 anterior cervical discectomy with bilateral foraminotomies C5-C6 C6-C7. #2 anterior cervical arthrodesis C5-C6 C6-C7. #3 placement 8 mm Spira cage filled with os design bone graft C5-C6 C6-C7. #4 placement of Z plate and screws from C5-C7. (2) Paroxysmal A-fib: Plan: No chronic anticoagulation (3) Contusion of scalp: (4) Concussion and edema of cervical spinal cord, initial encounter: (5) Contusion of right frontal lobe: (6) Vasovagal syncope: (7) HTN (hypertension): (8) Urinary retention: Plan Continue current plan of care Continue therapies Maintain urinary Granado catheter until more active Pursue rehab placement Will need additional bowel interventions Admission and Anticipated Discharge Date Admission Date: December 22, 2023 Subjective No acute issues overnight, patient still distressed about minimal use of his left hand Physical Exam Physical Exam: Constitutional: Alert HEENT: Mucous membranes moist. Neck: Rigid cervical collar, surgical dressing dry and intact Lungs: Clear to auscultation, decreased, no wheezes rales or rhonchi CV: S1-S2, regular Abdomen: Soft, nontender, nondistended Extremities: No significant edema Neuro: Left upper extremity strength is range of motion is improving. Left wrist and hand and finger strength minimally improved but is getting a little bit more movement. Left lower extremity strength and range of motion significantly improved since admission Psych: Cooperative, normal mood Results & Data Results & Data Vital Signs (Past 12 Hours) Vital Signs Temp Pulse Resp BP Pulse Ox O2 Del Method 12/27/23 07:25 36.4 C L 60 18 124/72 94 Room Air (3) Contusion of scalp Encounter type: initial encounter Qualified Code(s): S00.03XA - Contusion of scalp, initial encounter (5) Contusion of right frontal lobe Loss of consciousness presence/duration: with LOC of 30 min or less
[2023-12-27] MEDS: DOCUSATE SODIUM/SENNA 50/8.6MG TAB PO SCH (13:30)
[2023-12-27] MEDS: LACTULOSE SYRUP 30 GM/45 ML UDP PO SCH (13:30)
[2023-12-27] MEDS: bisacodyL 10 MG SUPP PR ONE (15:01)
[2023-12-27] MEDS: LACTULOSE SYRUP 10 GM/15 ML BTL 960 ML PO SCH (16:50)
--- NOTE | 2023-12-28 12:25 | XRay Report ---
CERVICAL SPINE 3 VIEWS HISTORY: Cervical spine fusion. postop COMPARISON: None. FINDINGS: The cervical spine is visualized from C1 through the superior endplate of T1. There is no f racture. No subluxation. The C1-C2 interval is intact. Mild prevertebral soft tissue swelling within the lower cervical spine. Mild facet degenerative changes are noted. Anterior cervical discectomy an d fusion from C5 through C7. The hardware appears intact. Remaining disc spaces are preserved. IMPRESSION: 1. No fracture or subluxation within the cervical spine. 2. Anterior cervical discectomy and fusion from C5 through C7. The hardware appears intact. 3. Mild prevertebral soft tissue swelling within the lower cervical spine. This is likely due to the recent postoperative change. ACT 112: Negative or not required by law. Electronically signed by: Yemi Mckinley M.D. 12/28/2023 12:23 PM
--- NOTE | 2023-12-28 13:09 | Hospitalist Progress Note ---
Date of Service December 28, 2023 Assessment & Plan (1) Cervical myelopathy with cervical radiculopathy: Plan: Cervical spine surgery on 12/23/2023 #1 anterior cervical discectomy with bilateral foraminotomies C5-C6 C6-C7. #2 anterior cervical arthrodesis C5-C6 C6-C7. #3 placement 8 mm Spira cage filled with os design bone graft C5-C6 C6-C7. #4 placement of Z plate and screws from C5-C7. (2) Paroxysmal A-fib: Plan: No chronic anticoagulation (3) Contusion of scalp: (4) Concussion and edema of cervical spinal cord, initial encounter: (5) Contusion of right frontal lobe: (6) Vasovagal syncope: (7) HTN (hypertension): (8) Urinary retention: Plan Continue current plan of care Continue therapies Communication with Dr. Simpson, spine surgery. follow-up cervical spine x-rays C-spine x-ray shows some continued swelling, will transition to oral Decadron and start to taper Pursue rehab placement Bedside education with patient that his progress will be slow and incremental due to his spinal cord injury Admission and Anticipated Discharge Date Admission Date: December 22, 2023 Subjective No acute issues overnight. Physical Exam Physical Exam: Constitutional: Alert HEENT: Mucous membranes moist. Neck: Rigid cervical collar Lungs: Clear to auscultation, decreased, no wheezes rales or rhonchi CV: S1-S2, regular Abdomen: Soft, nontender, nondistended Extremities: No significant edema Neuro: Right upper extremity weakness slightly improved, continues with minimal strength and movement of the fingers of his left hand Left lower extremity strength and range of motion slightly improved Psych: Cooperative, normal mood Results & Data Results & Data Vital Signs (Past 12 Hours) Vital Signs Temp Pulse Resp BP Pulse Ox O2 Del Method 12/28/23 08:35 68 148/65 H 12/28/23 07:39 36.4 C L 55 L 18 147/81 H 95 Room Air (3) Contusion of scalp Encounter type: initial encounter Qualified Code(s): S00.03XA - Contusion of scalp, initial encounter (5) Contusion of right frontal lobe Loss of consciousness presence/duration: with LOC of 30 min or less
[2023-12-28] MEDS ORDERED: LACTULOSE SYRUP 10 GM/15 ML BTL 960 ML PO SCH (17:00)
[2023-12-29] MEDS: dexAMETHasone 4 MG TAB PO SCH (08:21)
[2023-12-29] MEDS ORDERED: LACTULOSE SYRUP 10 GM/15 ML BTL 960 ML PO SCH (09:00)
--- NOTE | 2023-12-29 13:30 | XRay Report ---
KUB CLINICAL HISTORY: Abdominal pain. Constipation. COMPARISON STUDY: None. FINDINGS: There is mild gaseous distention of small and large bowel. A moderate amount of stool withi n the colon and rectum is present. Pelvic calcifications favor phleboliths. No evidence for free air on supine exam. IMPRESSION: 1. Mild gaseous distention of small and large bowel. No definite evidence for a bowel obstruction. Th is may reflect an ileus. 2. Moderate amount of stool within the colon and rectum. ACT 112: Negative or not required by law. Electronically signed by: Markie Degroot M.D. 12/29/2023 1:28 PM
--- NOTE | 2023-12-29 14:55 | Hospitalist Progress Note ---
Date of Service December 29, 2023 Assessment & Plan (1) Cervical myelopathy with cervical radiculopathy: Plan: Cervical spine surgery on 12/23/2023 #1 anterior cervical discectomy with bilateral foraminotomies C5-C6 C6-C7. #2 anterior cervical arthrodesis C5-C6 C6-C7. #3 placement 8 mm Spira cage filled with os design bone graft C5-C6 C6-C7. #4 placement of Z plate and screws from C5-C7. (2) Paroxysmal A-fib: Plan: No chronic anticoagulation (3) Contusion of scalp: (4) Concussion and edema of cervical spinal cord, initial encounter: (5) Contusion of right frontal lobe: (6) Vasovagal syncope: (7) HTN (hypertension): (8) Urinary retention: Plan Continue postoperative rehabilitation Continue oral Decadron, taper over next 10 to 14 days Patient is having some constipation/possible postoperative ileus. On significant dose of lactulose. Plan for enema today Continue therapies Case management to pursue rehab placement, [facility] Admission and Anticipated Discharge Date Admission Date: December 22, 2023 Subjective Patient states he still feels full of stool and has not had a good bowel movement. Otherwise no acute issues overnight Physical Exam Physical Exam: Constitutional: Alert HEENT: Mucous membranes moist. Neck: Rigid cervical collar loosened for eating Lungs: Clear to auscultation, decreased, no wheezes rales or rhonchi CV: S1-S2, regular Abdomen: Soft, nontender, nondistended Extremities: No significant edema Neuro: Improving range of motion of left upper extremity and left lower extremity. Left fingers and hand still weak Psych: Cooperative, normal mood Results & Data Results & Data Vital Signs (Past 12 Hours) Vital Signs Temp Pulse Resp BP Pulse Ox O2 Del Method 12/29/23 07:30 36.5 C 108 H 18 119/84 94 Room Air 12/29/23 07:15 Room Air Diagnostic Findings Personally reviewed KUB films, some mild distention. Stool in the colon and rectum, no obstruction, no air-fluid levels (3) Contusion of scalp Encounter type: initial encounter Qualified Code(s): S00.03XA - Contusion of scalp, initial encounter (5) Contusion of right frontal lobe Loss of consciousness presence/duration: with LOC of 30 min or less
[2023-12-29] MEDS: MINERAL OIL ENEMA 133 ML BTL PR ONE (16:12)
[2023-12-30] MEDS: LORazepam 0.5 MG TAB PO PRN (00:07)
--- NOTE | 2023-12-30 11:11 | Discharge Summary ---
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 #2 anterior cervical arthrodesis C5-C6 C6-C7. #3 placement 8 mm Spira cage filled with os design bone graft C5-C6 C6-C7. #4 placement of Z plate and screws from C5-C7. (3) Paroxysmal A-fib: No chronic anticoagulation (4) Contusion of scalp: (5) Concussion and edema of cervical spinal cord, initial encounter: (6) Contusion of right frontal lobe: (7) Vasovagal syncope: (8) HTN (hypertension): (9) Urinary retention: Plan Patient 48-year-old gentleman presented from [facility] with reported syncopal event. In the emergency room that as significant trauma of his cervical spine. Orthopedic spine surgeon was notified and recommended hospitalization. Patient was hospitalized and admitted on the hospitalist service. Patient was placed in a cervical rigid collar. Additional imaging of the spine was performed including MRI. Patient was evaluated by orthopedic spine surgery. Patient was also evaluated by cardiology for his syncopal event and known paroxysmal atrial fibrillation. Patient was cleared from a cardiology standpoint to undergo cervical spine surgery. Due to the fact the patient is in sinus rhythm, no significant paroxysms atrial fibrillation also did not seem to benefit from the prazosin and may be having issues with vasovagal/orthostatic syncope, cardiology recommended stopping his Tikosyn and prazosin. Not a candidate for anticoagulation in the setting of a low CHADS2 score. After cleared by cardiology, patient was taken urgently to the operating room for cervical spine intervention. In the operating room was noted to have a significant disruption of the annulus C5-C6 and unstable fracture. Final procedure/surgical intervention is noted above. Postprocedure the patient slowly regained some function of the lower extremity and upper extremity. He continued to have issues with urinary retention and moving his bowels. Granado catheter was placed and will remain in place at discharge. He also continue to have significant flaccidity of his left fingers and hand. His left upper extremity range of motion strength did improve. He was seen by therapies. He was treated with high dose burst of IV steroids and will be continued on a steroid taper after discharge. Case management was involved in his care for coordinating her discharge plans with the present. Follow-up postoperative x- rays remained stable. On the day of discharge patient's vital signs are stable. He was up and ambulating into the bathroom and doing some self-care. He was tolerating periods of time with the cervical collar off for meals. He was moving his bowels. Continue with Granado catheter. Patient did not require any additional acute hospital level intervention. The nursing home and will be coordinating ongoing rehabilitation for the patient. He should follow-up with neurosurgery in 2 weeks. Signout coordinated with nursing home medical staff Notes For Next Care Provider Activity and lifting and bathing instructions as noted below by spine surgeon Dr. Simpson Follow-up with Dr. Simpson, spine surgery in 2 weeks Medication Changes From Visit Flexeril added for muscle spasms Aggressive bowel regimen added Oxycodone for pain control Admission HPI Per Admitting Provider Pt is a 48yo incarcerated male with PMhx significant for atrial fibrillation not currently on anticoagulation, ADHD, nightmare disorder, MDD, R Foot drop, OA, DDD, Vit D deficiency, chronic pain presenting after a syncopal episode and co ncern for loss of function in his left leg. Per pt, second syncopal episode that started since he started intermittent fasting 5 days ago with recent dose increase in home medication prazosin. Pt states he stood up for roll call at the nursing home, felt dizzy and does not remember anything else after that. Per nursing home, was possibly on the ground for about 20 mins. Pt states that he started intermittent fasting 5 days ago, eats between 10:30 and 4pm only, fish and nuts, notes not typically hydrated. States that this is his second syncopal episode. Usually feels dizzy before he passes out. Denies N/V or sweats. States he has lost 9lbs since he started the intermittent fasting 5 days ago. Notes he previously weighed >400lbs at one time. States he takes the prazosin for nightmares and the dose was recently increased. Notes he also takes metoprolol for his history of a fib. Pt states that he is very concerned that he will not walk again. States he is due to have surgery for his foot drop in [place], but needs an MRI first. Pt was a stroke alert on arrival in the ED. Per telestroke eval, no TNK. Admission Exam Per Admitting Provider See H&P Discharge Exam Constitutional: Alert, up and ambulating to bathroom HEENT: Mucous membranes moist. Neck: Rigid cervical collar. Small surgical dressing anterior neck clean and dry Lungs: Clear to auscultation, decreased, no wheezes rales or rhonchi CV: S1-S2, regular Abdomen: Soft, nontender, nondistended Extremities: No significant edema Neuro: Continued flaccidity of left fingers, improving strength of left upper and lower extremity, improving coordination Psych: Cooperative, normal mood Updated Medication List Medication Instructions Recorded Confirmed Type dofetilide 500 mcg capsule 500 mcg PO BID 06/11/22 12/22/23 History (Tikosyn) gabapentin 800 mg tablet 800 mg PO TID 06/11/22 12/22/23 History potassium chloride 10 mEq 10 meq PO DAILY #30 tabs 10/11/22 12/22/23 Rx tablet,extended release(part/cryst) prazosin 2 mg capsule 4 mg PO HS 10/11/22 12/22/23 History metoprolol tartrate 37.5 mg tablet 37.5 mg PO DAILY #30 tabs 11/25/22 12/22/23 Rx duloxetine 60 mg capsule,delayed 60 mg PO BID 03/12/23 12/22/23 History release atomoxetine 60 mg capsule 60 mg PO DAILY 12/22/23 12/22/23 History ergocalciferol (vitamin D2) 1,250 1,250 mcg PO DAILY 12/22/23 12/22/23 History mcg (50,000 unit) capsule (Drisdol) trazodone 100 mg tablet 100 mg PO HS 12/22/23 12/22/23 History acetaminophen 500 mg tablet 1,000 mg (2 x 500 mg) PO TID #90 12/30/23 Rx (Tylenol Extra Strength) tabs cyclobenzaprine 10 mg tablet 10 mg PO Q8H PRN muscle spasm #20 12/30/23 Rx tabs dexamethasone 4 mg tablet See Rx Instructions .Route 12/30/23 Rx .COMPLEX #27 tabs lactulose 20 gram/30 mL oral 30 g (45 mL) PO QID #300 mL 12/30/23 Rx solution metoprolol tartrate 25 mg tablet 12.5 mg (1/2 x 25 mg) PO BID #60 12/30/23 Rx tabs multivitamin with folic acid 400 1 tab PO QAM #30 tabs 12/30/23 Rx mcg tablet (Daily-Analy (with folic acid)) oxycodone 20 mg tablet 20 mg PO Q4H PRN pain #12 tabs 12/30/23 Rx sennosides 8.6 mg-docusate sodium 2 tab PO BID #120 tabs 12/30/23 Rx 50 mg tablet (Senokot-S) Hospital Stay Data Consultations 12/22/23 12:31 ED Decision to Admit Stat 12/22/23 13:33 Consult Orthopedic Spine Surgery Routine 12/22/23 15:48 Consult Cardiology Routine Procedures Performed Operation Date: 12/23/23 08:20 Actual Procedures p C6 Corpectomy(Not Applicable) - Amadou Simpson, Diagnostic Imagining Performed 12/22/23 08:40 CT angio head w con Stat CT angio neck with con Stat CT lumbar spine wo con Stat 12/22/23 08:41 CT cervical spine wo con Stat CT head/brain wo con Stat 12/22/23 09:29 MR cervical spine wo con Stat 12/22/23 14:23 MRI Brain [MR brain wo/w con] Routine 12/23/23 FL cervical 2-3V Routine Reviewed imaging, laboratory and diagnostic studies. Pertinent findings as below. CBC and BMP within normal ranges, stable TSH 4.03 KUB no evidence of obstruction some mild ileus Cervical spine x-ray postoperative on 12/28/2023 showed hardware to be intact, some mild soft tissue swelling within the lower cervical spine Pending Results Patient Have Any Pending Studies at Discharge: No Discharge Instructions Given to Patient (Per Discharging Provider) ACTIVITY RECOMMENDATIONS: SELF CARE INSTRUCTIONS AFTER CERVICAL FUSIONS 1. No smoking. Smoking drastically decreases the chance of a solid fusion. 2. No bending, lifting more than 5 pounds, or twisting (roll like a log when turning in bed). 3. You may shower 3 days after surgery. Thoroughly dry wound. Do not soak in the tub. 4. Cervical collar: Must be worn at all times including sleeping. You may remove the brace only to bath, eat and if you are sitting in a recliner. 5. Please walk as much as you can for exercise. Gradually increase the distance that you walk as your endurance increases. SPECIAL CARE INSTRUCTIONS: VERY IMPORTANT TO READ AND REVIEW A. Do not take any anti-inflammatory medications (i.e. Indocin, Advil, Aspirin, Naprosyn, Aleve, Motrin, etc.) as these may inhibit the chance of a solid fusion. Tylenol is okay to take. B. Your surgical incision has been closed with a cosmetic suture under the skin that will dissolve in about 6 weeks. In 14 days, you can use a pair of clean scissors and cut the suture that is left outside of the skin at the ends of your incision. C. Complications are uncommon, but please contact us if you have any signs or symptoms of: 1. wound infection (fever higher than 102.5 degrees F, redness, separation of wound, drainage, or increasing pain from the incision) 2. blood clots in legs (pain, swelling, redness and warmth in legs) 3. urinary tract infection (fever higher than 102.5 degrees, burning upon urination or increased frequency of urination) 4. nerve problems (inability to walk on your toes or heels, numbness, loss of bowel or bladder control) 5. any other symptoms that concern you. D. Please call the office at if you have any concerns or questions about your operation or recovery. MANAGING PAIN AFTER SPINAL SURGERY 1. Narcotic medication is intended for short-term use and will be provided for surgical pain. Surgical pain usually lasts for a period of 4-6 weeks. Narcotic medication includes Percocet, Vicodin, Darvocet, Tylenol #3 or Lortab. 2. Longer-term pain is more appropriately treated with non-narcotic medication such as Tylenol ES. 3. Muscle spasm is not appropriately treated with narcotics. Muscle relaxers such as Soma, Flexeril or Skelaxin can be used along with Tylenol ES. 4. Remember that we all live with some "aches and pains". This is not unusual or uncommon after an injury or as we get older. 5. We will provide appropriate medication within the normal guidelines of their prescribed use. We will also be very cautious and aware of potential abuse and extended duration of patients' medication needs. 6. Please allow 2-3 days to process refills. Prescriptions will not be mailed but must be picked up at the office. FOLLOW UP VISIT: Keep your scheduled follow-up appointment. Any questions, please call the office at . Total Time Total Time Spent Total Time Spent (In Minutes): 48
[2023-12-30 11:32] VITALS: BP 123/74; RESP 14; TEMP 97.5; O2SAT 96
[2023-12-30 12:03] VITALS: PULSE 74
--- NOTE | 2024-01-01 12:11 | Coding Query ---
CODING QUERY To promote full compliance with coding requirements relating to patient care, provider participation is requested in all cases of marker shipments uncertainty. Please assist us with the question(s) below: Coding Question(s): Contusion of Right Frontal Lobe was listed on 12/23/23 progress note. Was this contusion treated/monitored at all? Physician's Response(s): Contusion of right frontal lobe monitored by neurochecks Thank you Karen Sebastian Principal Diagnosis: "that condition established after study, to be chiefly responsible for occasioning the admission of the patient to the hospital for care." Co-Existing Principal Diagnosis: "when two or more diagnoses equally meet the criteria for principal diagnosis as determined by the circumstances of admission, diagnostic work up, and/or therapy provided, and the Alphabetic Index, Tabular List, or another coding guideline does not provide sequencing direction, any one of the diagnoses may be sequenced first." "When the physician has documented what appears to be a current diagnosis in the body of the record, but has not included the diagnosis in the final diagnostic statement, the physician should be asked whether the diagnosis should be added." ([facility] 2 QTR90. p3-4) JULI
--- NOTE | 2024-01-01 12:13 | Coding Query ---
CODING QUERY To promote full compliance with coding requirements relating to patient care, provider participation is requested in all cases of kicking machine operator uncertainty. Please assist us with the question(s) below: Coding Question(s): Per PN 12/29/23, "Patient is having some constipation/possible postoperative ileus. On significant dose of lactulose. Plan for enema today" Was this a postoperative complication or was it decided it was not? Physician's Response(s): Constipation and ileus suspect due to spinal cord injury Thank you Karen Sebastian Principal Diagnosis: "that condition established after study, to be chiefly responsible for occasioning the admission of the patient to the hospital for care." Co-Existing Principal Diagnosis: "when two or more diagnoses equally meet the criteria for principal diagnosis as determined by the circumstances of admission, diagnostic work up, and/or therapy provided, and the Alphabetic Index, Tabular List, or another coding guideline does not provide sequencing direction, any one of the diagnoses may be sequenced first." "When the physician has documented what appears to be a current diagnosis in the body of the record, but has not included the diagnosis in the final diagnostic statement, the physician should be asked whether the diagnosis should be added." ([facility] 2 QTR90. p3-4) JULI
== END 2023-12-30 15:44 | DRG 958 ==
LOC: ED 08:19 → 2E 12:47 → SUATTDRO 12:47 → 2E 14:42 → 3W 12-26 23:17